=== PATIENT | male | born 1935 | race Caucasian/White ===

== ENCOUNTER 2016-08-16 09:36 | Observation (INO) ==
[2016-08-16 10:11] LABS: Basophils # 0.1 K/mcL (0.0-0.2); Basophils % 0.6 %; Eosinophils % 0.2 %; Hematocrit 41.3 % (37.5-50.1); Hemoglobin 13.6 g/dL (12.9-16.9); Immature Granulocytes % 0.3 % (0-4); Lymphocytes # 1.2 K/mcL (0.6-4.6); Lymphocytes % 13.3 %; Mean Corpuscular HGB Conc 32.9 g/dL (31.6-35.5); Mean Corpuscular Hemoglobin 30.1 pg (28.0-33.3); Mean Corpuscular Volume 91.4 fL (83.0-100.0); Mean Platelet Volume 9.9 fL (9.4-12.4); Monocytes # 0.9 K/mcL (0.0-1.3); Monocytes % 9.9 %; Neutrophils # 6.8 K/mcL (1.6-8.9); Platelet Count 410 K/mcL (140-400); Red Blood Count 4.52 M/mcL (4.19-5.50); Red Cell Distribution Width 14.1 % (11.5-14.5); Segmented Neutrophils % 75.7 %
--- NOTE | 2016-08-16 10:15 | Emergency Department Note ---
Disposition Clinical Impression: Uncontrolled hypertension, Bradycardia, Left bundle branch block, First degree atrioventricular block Disposition: Admitted As Inpatient Condition: Fair Referrals: Zarina Thacker MD [Partnered Physician] - Forms: ED Satisfaction Letter Time of Disposition: 11:55 Arrhythmia/Palpitations HPI - General Chief Complaint: ED Arrhythmia/Palpitations Stated Complaint: Low HR, dizziness Time Seen by Provider: 08/16/16 09:44 Source: patient Limitations: no limitations Nursing Notes Reviewed: Yes Vital Signs Reviewed: Yes - History of Present Illness HPI Narrative: 80-year-old male presents to emergency room for dizziness. States has been ongoing for months that seems to be getting worse and felt faint at times. He presents to the ER for concerns for elevated blood pressure and low heart rate. He does not see a doctor. Does not take any medications. He denies any chest pain or shortness of breath. No recent illness. Does not take any home medications for blood pressure. They took his vitals this morning at home and noted him to have a blood pressure of 200 systolic and a heart rate in the low 40s. His brought him into the ER for evaluation. Pt Subjective Complaint: irregular heart beat Onset (ago): week(s) Duration: intermittent Severity: mild Context: occurred during rest Associated symptoms: Reports: denies other symptoms - Related Data Allergies Allergy/AdvReac Type Severity Reaction Status Date / Time No Known Allergies Allergy Verified 08/16/16 10:16 All systems ED: reviewed and negative except as stated. Constitutional: Reports: as per HPI Eyes: Reports: as per HPI Cardiovascular: Reports: as per HPI Respiratory: Reports: as per HPI Gastrointestinal: Reports: as per HPI Musculoskeletal: Reports: as per HPI Integumentary: Reports: as per HPI Neurological: Reports: other (dizzy) Psychiatric: Reports: as per HPI Endocrine: Reports: as per HPI Hematological/Lymphatic: Reports: as per HPI Allergic/Immunologic: Reports: as per HPI Past Medical History - Past Medical History Medical history: Reports: no medical history Psychiatric history: Reports: no psych history - Social History Smoking Status: Never smoker Smokeless Tobacco Status: No Alcohol use: Reports: none Drug use: Reports: none Physical Exam - General Limitations: no limitations General appearance: alert - Head Head exam: atraumatic, normocephalic - Neck Neck exam: Present: normal inspection - Chest Chest inspection: Present: normal inspection, symmetric chest wall rise - Respiratory Respiratory exam: Present: normal lung sounds bilaterally. Absent: respiratory distress - Cardiovascular Cardiovascular exam: Present: bradycardia, irregular rhythm (PVCs) - Abdominal Exam Abdominal exam: Present: soft, Non-Tender - Extremities Exam Extremities exam: Present: pedal edema (1+ pitting edema) - Back Exam Back exam: Present: normal inspection - Neurological Exam Neurological exam: Present: alert, oriented X3 - Psychiatric Psychiatric exam: Present: normal affect, normal mood - Skin Skin exam: Present: warm, dry, intact Course Course Narrative: Patient was found to be hypertensive as well as bradycardic. His EKG shows a first-degree block as well as a left bundle-branch block. CT of the brain was nonacute. Slight elevation of the troponin likely secondary to coronary strain from the uncontrolled hypertension. We gave him hydralazine IV 10 mg. It brought his pressure down from the 220s down to the 180s. No other significant lab abnormalities. Patient will need to be admitted for further workup of this bradycardia as well as his hypertension. Vital Signs Temperature 97.3 F L 08/16/16 09:41 Pulse Rate 35 08/16/16 09:41 Respiratory Rate 18 08/16/16 09:41 Blood Pressure 220/118 08/16/16 09:41 O2 Sat by Pulse Oximetry 97 08/16/16 09:41 Temperature 97.3 F L 08/16/16 09:41 Pulse Rate 40 08/16/16 10:46 Respiratory Rate 18 08/16/16 10:46 Blood Pressure 181/64 08/16/16 10:46 O2 Sat by Pulse Oximetry 95 08/16/16 10:46 Oxygen Delivery Oxygen Delivery Room Air Arrhythmia/Palpitations - Medical Records Medical records reviewed: Yes I reviewed the patient's medical records. - Lab Data Lab results reviewed: Yes I reviewed the patient's lab results. Result diagrams: 08/16/16 10:03 08/16/16 10:03 Lab Results 08/16/16 08/16/16 08/16/16 Range/Units 10:03 10:03 10:03 WBC 9.0 (4.3-11.1) K/mcL RBC 4.52 (4.19-5.50) M/mcL Hgb 13.6 (12.9-16.9) g/dL Hct 41.3 (37.5-50.1) % MCV 91.4 (83.0-100.0) fL MCH 30.1 (28.0-33.3) pg MCHC 32.9 (31.6-35.5) g/dL RDW 14.1 (11.5-14.5) % Plt Count 410 H (140-400) K/mcL MPV 9.9 (9.4-12.4) fL Immature Gran % 0.3 (0-4) % Seg Neutrophils % 75.7 % Lymphocytes % 13.3 % Monocytes % 9.9 % Eosinophils % 0.2 % Basophils % 0.6 % Neutrophils # 6.8 (1.6-8.9) K/mcL Lymphocytes # 1.2 (0.6-4.6) K/mcL Monocytes # 0.9 (0.0-1.3) K/mcL Eosinophils # 0.0 (0.0-0.6) K/mcL Basophils # 0.1 (0.0-0.2) K/mcL Sodium 139 (136-145) mEq/L Potassium 4.4 (3.5-4.5) mEq/L Chloride 105 (98-109) mEq/L Carbon Dioxide 26 (19-29) mEq/L BUN 17 (8-26) mg/dL Creatinine 1.23 (0.72-1.25) mg/dL Est GFR ( Amer) > 60 (> 60) Est GFR (Non-Af Amer) 56 L (> 60) BUN/Creatinine Ratio 14 (6-26) Glucose 131 H (70-99) mg/dL Calculated Osmolality 291 (280-300) Calcium 9.5 (8.6-10.8) mg/dL Magnesium 1.9 (1.6-2.6) mg/dL Troponin I 0.06 H* (0-0.03) ng/mL TSH 0.909 (0.350-4.840) mcIU/mL - Radiology Data Radiology results reviewed: Yes I reviewed the patient's radiology results. - EKG Data EKG attestation: Yes I reviewed and interpreted this EKG. EKG results narrative: EKG shows a rate of 43. Sinus bradycardia with a first-degree block present. Left bundle branch block present. [place] interval 245. QRS 174. QT 424.
[2016-08-16 10:23] LABS: BUN/Creatinine Ratio 14 (6-26); Blood Urea Nitrogen 17 mg/dL (8-26); Calcium 9.5 mg/dL (8.6-10.8); Carbon Dioxide 26 mEq/L (19-29); Chloride 105 mEq/L (98-109); Glucose 131 mg/dL (70-99); Magnesium 1.9 mg/dL (1.6-2.6); Osmolality,Calculated 291 (280-300); Potassium 4.4 mEq/L (3.5-4.5); Sodium 139 mEq/L (136-145); eGFR For African Americans > 60 (> 60); eGFR For Non-African Americans 56 (> 60)
[2016-08-16 10:45] LABS: Thyroid Stimulating Hormone 0.909 mcIU/mL (0.350-4.840)
[2016-08-16] MEDS ORDERED: Naloxone 0.4 MG/ML INJ IVP PRN (12:21)
[2016-08-16] MEDS ORDERED: amLODIPine 5 MG TABLET PO SCH (12:30)
--- NOTE | 2016-08-16 12:44 | Internal Med History&Physical ---
Date of Encounter: 08/16/16 Time of Encounter: 12:35 Assessment and Plan (1) 2Nd degree AV block Current visit: Yes Status: Acute EKG shows 2nd degree AV block, with ventricular rate running in the 30s-40s. Patient reports he has been having lightheadedness over the last several weeks. Continuous playground monitor Pacer at bedside Consult to cardiology. NPO after midnight for possible pacemaker placement tomorrow. (2) Elevated troponin Current visit: Yes Status: Acute Troponin of 0.06. Likely demand ischemia due to patient's bradycardia and uncontrolled hypertension. Continuous playground monitor serial troponins for trend Consult to cardiology (3) Bradycardia Current visit: Yes Status: Acute Patient's HR 33-49 during my assessment. Patient complaining of occasional lightheadedness over the last few weeks, mostly with activity. EKG [id number] degree heart block with ventricular rate of 43. Continuous playground monitor pacer at the bedside cardiology consulted. (4) Uncontrolled hypertension Current visit: Yes Status: Acute Patient has not seen a doctor since the , however he reports that he has checked his blood pressure at [facility] 2-3 times a year and it always runs 180s-200s. Patient's blood pressure today continues to be uncontrolled, running 181/64-220/118. We do not want to bring down the blood pressure too far or too quickly. Will give 10mg amlodipine daily, hold for SBP > 160, and give 5mg Hydralazine IVP BID PRN for SBP > 190 or DBP > 110. Cardiology consulted. (5) DVT prophylaxis Current visit: Yes Status: Acute Ambulate with assistance anti-embolic stockings Lovenox 40mg SQ daily Internal Medicine - H&P: HPI Chief complaint: lightheadedness Admitted From: Emergency Dept Plans for Post Hospital Care: Home History of present illness: Mr. Navarro is a 80 year old male with no past medical history who presented to the emergency department today with complaints of feeling lightheaded. He reports he has had episodes of feeling "tipsy" for several weeks. He reports he feels "woozy" and like he might pass out. His checked his heart rate and blood pressure at home and noted his HR to be low (in the 30s) and blood pressure to be > 200, and they decided to come in to the emergency room. He denies any headache, chest pain, palpitations, numbness, weakness, tingling, confusion. He denies any fever, chills, sweats or body aches. Evaluation in the ED revealed bradycardia with HR in the 30s-40s, and hypertension with blood pressure 220/118. Troponin was elevated to 0.06. TSH was normal. CXR showed no acute cardiopulmonary process. CT Head showed no acute intracranial abnormality. EKG showed 2nd degree heart block with left bundle branch block. On exam, patient was alert and oriented with no focal neurological deficits. His pulses were bounding, and heart had bradycardic, regular rhythm. Lungs were clear bilaterally to auscultation. Past Med Surg Social Fam HX - Past Medical History Medical history: no medical history Psychiatric history: no psych history - Past Surgical History Surgical History: no surgical history - Social History Smoking Status: Never smoker Smokeless Tobacco Status: No Alcohol use: none Drug use: none - Family History Mother Living Status: Age at : 47 Cause of : cancer Hx Family Cancer: Yes Father Living Status: Age at : 65 Internal Medicine - H&P: Meds No Known Home Drugs 08/16/16 [History] Allergies No Known Allergies Allergy (Verified 08/16/16 10:16) All Systems PM: A 10-system review of systems was performed and is negative for pertinent findings except as documented above in the HPI. - Constitutional Constitutional: no chills, no fever(s), no night sweats - EENT Eyes: no change in vision, no discharge, no pain, no photophobia Ears: no ear discharge, no ear pain, no tinnitus Nose, mouth and throat: no dysphagia, no nasal discharge, no neck pain, no sore throat - Cardiovascular Cardiovascular ROS IM: lightheadedness, no chest pain, no diaphoresis, no dyspnea, no palpitations, no syncope - Respiratory Respiratory: no cough, no dyspnea, no wheezing, no excessive phlegm production - Gastrointestinal Gastrointestinal: no abdominal pain, no diarrhea, no hematemesis, no hematochezia, no melena, no nausea, no vomiting - Musculoskeletal Musculoskeletal ROS IM: no numbness, no tingling - Integumentary Integumentary IM: no rash, no unusual bruising - Neurological Neurological ROS: no confusion, no convulsions, no focal weakness, no numbness, no tingling, no tremor(s) - Hematologic/Lymphatic Hematologic/Lymphatic: no easy bruising - Constitutional Vitals: Temp Pulse Resp BP Pulse Ox 97.3 F L 40 18 181/64 95 08/16/16 09:41 08/16/16 10:46 08/16/16 10:46 08/16/16 10:46 08/16/16 10:46 General appearance: Present: A&O X 3, pleasant, no acute distress - Head Head exam: Present: atraumatic, normocephalic - Eye Eye exam: Present: PERRL, conjuntiva pink, sclera anicteric Pupils: Present: PERRL - Neck Neck exam general surgery: Present: supple, trachea midline. Absent: lymphadenopathy - Respiratory Respiratory exam: Present: CTAB. Absent: accessory muscle use, rales, rhonchi, wheezes - Cardiovascular Cardiovascular exam: Present: bradycardia, +S1, +S2. Absent: diastolic murmur, gallop, rubs, systolic murmur - Expanded Cardiovascular Exam Peripheral pulses: 2+: Dorsalis Pedis (L) PM, Dorsalis Pedis (R) PM, 3+/4+: Radial (L), Radial (R) - GI/Abdominal GI/Abdominal exam: Present: normal bowel sounds, soft, no peritoneal signs. Absent: distended, tenderness - Extremities Exam Extremities exam: Present: warm, radial pulses palpable and symetrical. Absent : calf tenderness, cyanotic, pedal edema - Neurological Exam Neurological exam: Present: CN II-XII intact, oriented X3, no focal deficits. Absent: pronater drift, facial droop, speech deficit - Skin Skin exam: Present: dry, intact Internal Med - H&P Results - Labs CBC & Chem 7: 08/16/16 10:03 08/16/16 10:03 Labs: All Lab Results (24 Hours) 08/16/16 08/16/16 08/16/16 Range/Units 10:03 10:03 10:03 WBC 9.0 (4.3-11.1) K/mcL RBC 4.52 (4.19-5.50) M/mcL Hgb 13.6 (12.9-16.9) g/dL Hct 41.3 (37.5-50.1) % MCV 91.4 (83.0-100.0) fL MCH 30.1 (28.0-33.3) pg MCHC 32.9 (31.6-35.5) g/dL RDW 14.1 (11.5-14.5) % Plt Count 410 H (140-400) K/mcL MPV 9.9 (9.4-12.4) fL Immature Gran % 0.3 (0-4) % Seg Neutrophils % 75.7 % Lymphocytes % 13.3 % Monocytes % 9.9 % Eosinophils % 0.2 % Basophils % 0.6 % Neutrophils # 6.8 (1.6-8.9) K/mcL Lymphocytes # 1.2 (0.6-4.6) K/mcL Monocytes # 0.9 (0.0-1.3) K/mcL Eosinophils # 0.0 (0.0-0.6) K/mcL Basophils # 0.1 (0.0-0.2) K/mcL Sodium 139 (136-145) mEq/L Potassium 4.4 (3.5-4.5) mEq/L Chloride 105 (98-109) mEq/L Carbon Dioxide 26 (19-29) mEq/L BUN 17 (8-26) mg/dL Creatinine 1.23 (0.72-1.25) mg/dL Est GFR ( Amer) > 60 (> 60) Est GFR (Non-Af Amer) 56 L (> 60) BUN/Creatinine Ratio 14 (6-26) Glucose 131 H (70-99) mg/dL Calculated Osmolality 291 (280-300) Calcium 9.5 (8.6-10.8) mg/dL Magnesium 1.9 (1.6-2.6) mg/dL Troponin I 0.06 H* (0-0.03) ng/mL TSH 0.909 (0.350-4.840) mcIU/mL - Diagnostic Studies Chest x-ray Additional comments: Chest X-Ray 08/16/16 09:49 IMPRESSION: No acute pulmonary process. D/ / 08/16/2016 10:16:10 Meche Thacker MD / [facility] Interpreting Provider: Meche Thacker MD CT scan - head Additional comments: Head CT 08/16/16 11:11 IMPRESSION: No acute intracranial abnormality. Mild scattered white matter low attenuation likely related to chronic microvascular ischemic change. D/ / Willy Gray MD / Willy Gray MD Interpreting Provider: Willy Gray MD
--- NOTE | 2016-08-16 13:55 | Event Note ---
Date of Encounter: 08/16/16 Time of Encounter: 13:50 Patient seen and examined withpetitioner. Patient presents with 2 weeks of symptoms of easy fatigue ability, decrease exercise tolerance, in addition to a sensation of "tipsiness" especially when he leans forwards. He was found to be in second-degree heart block one block. Heart rate was consistently in the 30s to 40s during my interview in the emergency room. Patient denies any syncope or pre-syncope. No chest pain. He was found to have severe hypertension which is chronic. Has been checking his pressure for many years and systolic guardado in the range of 180 to 200s but he has never taken any blood pressure medications. He has not seen a doctor for about 40 years. Suspect that his symptoms is due to symptomatic bradycardia. Cardiology service have been notified and he will possibly have a pacemaker tomorrow. He will be kept in NPO after midnight. With regards to his hypertension will plan to decrease his blood pressure only 15% to avoid precipitating ischemic infarcts. He will be started on Norvasc 10 mg daily. He does not have any focal neurological deficits. CT scan of the brain shows no intracranial bleed. He has elevated troponin (206 likely due to demand ischemia transurethral troponin. Has left bundle branch block but no prior EKG to compare. Continuous telemetry monitoring
[2016-08-16] MEDS: Aspirin 81 MG TAB.CHEW PO SCH (14:11)
--- NOTE | 2016-08-16 14:12 | Cardiology Consult Note ---
Date of Encounter: 08/16/16 Time of Encounter: 14:07 Assessment and Plan (1) 2Nd degree AV block Current Visit: Yes Status: Acute EKG reviewed which shows 2nd degree (type I) AV block. He reports no symptoms at rest. HR of 43. May benefit from pacer. Will make decision after echo result. (2) Elevated troponin Current Visit: Yes Status: Acute Troponin elevated at 0.06. EKG shows 2nd degree (type 1) AV block with rate of 43 No active or history of chest pain or angina equivalent Recommend trending troponin Echo is pending Further recommendations will follow after echo results (3) Left bundle branch block Current Visit: Yes Status: Acute No old EKG's to compare to Unclear age of LBBB (4) Uncontrolled hypertension Current Visit: Yes Status: Acute Agree with treating uncontrolled HTN with 15% reduction over next 24 hours. Elevated troponin may be due to uncontrolled HTN vs primary cardiac ischemic disease Echo is pending. Discussion w patient/family: The assessment and plan as outlined above was discussed with the patient and/or family members who expressed understanding and agreement. All questions were answered. Thank you for involving us in the care of your patient. Please call with any questions. History of Present Illness Consult date: 08/16/16 Consult reason: 2nd degree heart block, with elevated troponin Chief complaint: Pre-syncope History of present illness: Mr. Navarro is a 80 year old male who reports "I haven't been to a doctor since the day I was born". He has no known PMH. Takes no medications. NKDA. He reports he has had approximately 1 week of presyncope after bending over and standing back up quickly. 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 Denies any CP/COY. Denies any edema or cough. He told his about his symptoms who took him with her to her PCP appointment to get his BP checked. He was told to come to the ER due to HTN and bradycardia. He says he is currently asymptomatic while at rest. Past Med Surg Social Fam HX - Past Medical History Medical history: no medical history Psychiatric history: no psych history - Past Surgical History Surgical History: no surgical history - Social History Smoking Status: Never smoker Smokeless Tobacco Status: No Alcohol use: none Drug use: none - Family History Mother Living Status: Age at : 47 Cause of : cancer Hx Family Cancer: Yes Father Living Status: Age at : 65 Medications and Allergies No Known Home Drugs 08/16/16 [History] Allergies No Known Allergies Allergy (Verified 08/16/16 10:16) All Systems Review: A 10-system review of systems was performed and is negative for pertinent findings except as documented above in the HPI. - Constitutional Constitutional: no fever(s), no headache(s), no weight loss - EENT Eyes: no blurred vision Nose, mouth and throat: no epistaxis, no sore throat - Cardiovascular Cardiovascular: no chest pain at rest, no chest pain with exertion, no claudication, no dyspnea on exertion, no leg edema, no lightheadedness, no palpitations, no syncope - Respiratory Respiratory: no cough, no dyspnea - Gastrointestinal Gastrointestinal: no abdominal pain - Genitourinary Genitourinary: no dysuria - Integumentary Integumentary: no rash - Neurological Neurological: other (presyncope on standing), no syncope - Psychiatric Psychiatric: no anxiety, no depression - Hematological/Lymphatic Hematologic/Lymphatic: no easy bleeding Physical Examination Vital Signs, Last 4 Hours Temp Pulse Resp BP Pulse Ox 08/16/16 13:56 42 08/16/16 13:31 98.0 F 47 16 197/65 97 08/16/16 13:16 18 194/65 General: Conversant, No Apparent Distress HEENT: Atraumatic, Mucus Membranes Moist Neck: No JVD Cardiac: Other (bradycardia. No murmur. S1 and S2 present) Lungs: Normal Breath Sounds, No Wheeze, Rales, Rhonchi Neuro: Alert and responsive Abdomen: Soft Skin: No rashes noted on visualized skin Musculoskeletal: No Chest Wall Tenderness Extremities: No Clubbing, No Cyanosis, No Edema, Normal Pulses Results 08/16/16 10:03 08/16/16 10:03 Consult Discharge Plan - Plan Referrals: NO,PCP [Primary Care Provider] -
--- NOTE | 2016-08-16 14:19 | Event Note ---
Date of Encounter: 08/16/16 Time of Encounter: 13:46
[2016-08-17] MEDS ORDERED: *HR* Enoxaparin 40 MG/0.4 ML SYRINGE SQ SCH (06:00)
[2016-08-17 06:32] LABS: Basophils % 0.5 %; Eosinophils % 0.1 %; Hematocrit 38.8 % (37.5-50.1); Immature Granulocytes % 0.3 % (0-4); Lymphocytes # 1.2 K/mcL (0.6-4.6); Lymphocytes % 13.5 %; Mean Corpuscular HGB Conc 33.5 g/dL (31.6-35.5); Mean Corpuscular Hemoglobin 30.2 pg (28.0-33.3); Mean Corpuscular Volume 90.2 fL (83.0-100.0); Mean Platelet Volume 9.9 fL (9.4-12.4); Monocytes # 0.8 K/mcL (0.0-1.3); Monocytes % 9.2 %; Neutrophils # 6.7 K/mcL (1.6-8.9); Platelet Count 366 K/mcL (140-400); Red Cell Distribution Width 14.4 % (11.5-14.5); Segmented Neutrophils % 76.4 %
[2016-08-17 06:48] LABS: BUN/Creatinine Ratio 14 (6-26); Blood Urea Nitrogen 16 mg/dL (8-26); Carbon Dioxide 23 mEq/L (19-29); Chloride 110 mEq/L (98-109); Chol/HDL Ratio 3.7 (0-4.9); Cholesterol 146 mg/dL (< 200); Glucose 113 mg/dL (70-99); HDL Cholesterol 39 mg/dL (40-59); LDL Cholesterol,Calculated 92 mg/dL (0-99); Osmolality,Calculated 292 (280-300); Potassium 4.3 mEq/L (3.5-4.5); Sodium 140 mEq/L (136-145); Triglycerides 77 mg/dL (< 150); eGFR For African Americans > 60 (> 60); eGFR For Non-African Americans > 60 (> 60)
[2016-08-17] MEDS: Aspirin 81 MG TAB.CHEW PO SCH (07:39)
[2016-08-17] MEDS: amLODIPine 5 MG TABLET PO SCH (07:40)
--- NOTE | 2016-08-17 09:08 | ECHO - Doppler Report ---
Echocardiogram Name: Sean Navarro Date of Study: 08/16/2016 Date: 1935 Ht: 74.0 in Medical Record#: [id number] Age: 80 Wt: 175.0 lb Gender: Male BSA: 2.05 Order #: [id number] Location: [facility] Room #: 2N12 Reading Physician: Angel Haile MD, [facility] Product Safety Test Engineer: Adele Avilez Ordering Physician: Tarah Campa CNP Primary Physician: Zarina Thacker MD Indications: Heart block Impressions: Sinus rhythm with 2:1 AV block. Heart rate was in the upper 30's during this study. Normal LV systolic function, LVEF 55-60%. Atypical septal motion consistent with bundle branch block. Mild concentric left ventricular hypertrophy. Indeterminate diastolic function. Normal right ventricular size and function. Moderately dilated left atrium. Mildly dilated right atrium. Mild diastolic mitral regurgitation. Mild diastolic tricuspid regurgitation. Mild pulmonary hypertension. Estimated RVSP = 45 mmHg. Left Ventricular Wall Motion: Rest Echo Findings All wall segments showed normal motion. Findings: Study Quality * Suboptimal echo windows. ECG Findings * Sinus rhythm with 2:1 AV block. Heart rate was in the upper 30's during this study. Left Ventricle * Normal LV systolic function, LVEF 55-60%. * Atypical septal motion consistent with bundle branch block. * Mild concentric left ventricular hypertrophy. * Indeterminate diastolic function. Right Ventricle * Normal right ventricular size and function. Left Atrium * Moderately dilated left atrium. Right Atrium * Mildly dilated right atrium. Aorta * Normally sized aortic root. Pericardium * There is a trivial pericardial effusion present. IVC * The IVC is not dilated. Aortic Valve * Aortic valve not well visualized. * No aortic stenosis. * Mild aortic regurgitation. Mitral Valve * Mild mitral annular calcification * No mitral stenosis. * Mild diastolic mitral regurgitation. Tricuspid Valve * Tricuspid valve not well visualized. * No tricuspid stenosis. * Mild diastolic tricuspid regurgitation. * Mild pulmonary hypertension. Estimated RVSP = 45 mmHg. Pulmonic Valve * Pulmonic valve not well visualized. * No pulmonic stenosis. * Trace pulmonic regurgitation. History Family History of CAD Measurements: BP: 197/ 65 2D Normal Values RVIDd: 3.50 cm IVSd: 1.20 cm 0.6 - 1.0 cm LVIDd: 5.60 cm 3.7 - 5.6 cm LVPWd: 1.20 cm 0.6 - 1.1 cm LVIDs: 3.40 cm 1.5 - 3.6 cm AO: 3.70 cm < 4.0 cm LA volume: 84 Tricuspid Valve TV Regurg Peak Grad: 40.00mmHg TV Regurg Peak Davide: 3.16m/sec Updated by Angel Haile MD, [facility] on 08/17/2016 9:00:31 AM electronically signed on 08/17/2016 9:02:13 AM with status of Final Wall Motion Ortiz: 1=Normal, 2=Hypokinesis, 3=Akinesis, 4=Dyskinesis, 5=Aneurysmal, 6=Hyperkinetic, X=Not Visualized (Blank)=Missing
--- NOTE | 2016-08-17 09:55 | Cardiology Progress Note ---
Date of Encounter: 08/17/16 Time of Encounter: 09:53 Assessment and Plan (1) 2Nd degree AV block Current Visit: Yes Status: Acute EKG reviewed which shows 2nd degree (type I) AV block. He reports no symptoms at rest. HR of 30's to 40's. Echo did not show discrete wall motion abnormality. Plan is for a Pacer today. (2) Elevated troponin Current Visit: Yes Status: Acute Troponin elevated at 0.06. EKG shows 2nd degree (type 1) AV block with rate of 43 No active or history of chest pain or angina equivalent Mild increase in troponin. Not likely from acute occlusive disease. No plan for immediate LHC. (3) Left bundle branch block Current Visit: Yes Status: Acute No old EKG's to compare to Unclear age of LBBB (4) Uncontrolled hypertension Current Visit: Yes Status: Acute Agree with treating uncontrolled HTN with 15% reduction over next 24 hours. Elevated troponin may be due to uncontrolled HTN Discussion w patient/family: The assessment and plan as outlined above was discussed with the patient and/or family members who expressed understanding and agreement. All questions were answered. Thank you for involving us in the care of your patient. Please call with any questions. Subjective Principal diagnosis: Mobitz 1 block Interval history: No significant events overnight. Received an echo which did not show any concern for significant wall motion abnormality. EF 55-60% He has been NPO since midnight. No CP/COY. No symptoms of pre-syncope while at rest. Does feel fatigued when gets up and walks to bathroom. Family has multiple questions which were answered. Objective Vital Signs, Last 4 Hours Temp Pulse Resp BP Pulse Ox 08/17/16 07:49 39 08/17/16 07:09 98.4 F 40 18 185/69 94 General: Conversant HEENT: Atraumatic Neck: No JVD Cardiac: Other (bradycardia) Lungs: Normal Breath Sounds Neuro: Alert and responsive Abdomen: Soft Skin: No rashes noted on visualized skin Extremities: No Cyanosis, No Edema, Normal Pulses Results 08/17/16 06:26 08/17/16 06:26 Lab Results 08/16/16 08/16/16 08/17/16 16:06 22:04 06:26 WBC 8.8 Hgb 13.0 Hct 38.8 Plt Count 366 Sodium Potassium Chloride Carbon Dioxide BUN Creatinine Glucose Calcium Troponin I 0.08 H* 0.10 H* 08/17/16 06:26 WBC Hgb Hct Plt Count Sodium 140 Potassium 4.3 Chloride 110 H Carbon Dioxide 23 BUN 16 Creatinine 1.12 Glucose 113 H Calcium 9.0 Troponin I - Imaging and Cardiology Echo: report reviewed - VTE Documentation of Mechanical Device: Graduated compression elastic hosiery Consult Discharge Plan - Plan Referrals: NO,PCP [Primary Care Provider] -
--- NOTE | 2016-08-17 11:37 | Electrocardiograph Report ---
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
--- NOTE | 2016-08-17 11:45 | Electrocardiograph Report ---
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
[2016-08-17] MEDS ORDERED: *HR* Midazolam HCl 2 MG/2 ML VIAL ONE ×2 (16:38→17:11)
[2016-08-17] MEDS ORDERED: *HR* FentaNYL (PF) 100 MCG/2 ML VIAL ONE (16:39)
[2016-08-17] MEDS ORDERED: D5% in Water (Mini-Bag+) 100 ML IVPB ONE (16:39)
[2016-08-17] MEDS ORDERED: Water for inj. (sterile) 10 ML IV ONE (16:39)
[2016-08-17] MEDS ORDERED: 0.9 % Sodium Chloride 500 ML ONE (16:39)
--- NOTE | 2016-08-17 16:42 | Pre-Sedation Evaluation ---
Pre-sedation evaluation - Pre-sedation checklist Date of procedure: 08/17/16 Procedure: PPM Recent Vitals: Last Vital Signs Temp 98.6 F 08/17/16 15:00 Pulse 44 08/17/16 15:00 Resp 16 08/17/16 15:00 BP 185/65 08/17/16 15:00 Pulse Ox 94 08/17/16 15:00 H&P (including ROS) documented in medical record: Yes Previous reaction to sedatives/anesthetics: No Dietary Status: NPO after Midnight Airway Assessment: Patient can open mouth completely, TMJ function normal, Micrognathia (under-bite, receding chin) absent Dentition: No loose teeth or bridges Possible difficult airway: No ASA Classification *see protocol: CLASS II-Mild systemic disease Plan of Care: Pt appropriate candidate for procedure/moderate/conscious sedation , Risks/benefits of procedure/sedation discussed w/ patient/family
[2016-08-17] MEDS ORDERED: 0.9 % Sodium Chloride 1,000 ML ONE (16:55)
--- NOTE | 2016-08-17 17:18 | Internal Med Progress Note ---
Date of Encounter: 08/17/16 Time of Encounter: 17:12 - Assessment and plan (1) 2Nd degree AV block Current Visit: Yes Status: Acute Assessment and plan: for pacemaker today, follow cards. (2) Uncontrolled hypertension Current Visit: Yes Status: Acute Assessment and plan: continue current management, continue monitoring. - Subjective Interval history: 1st encounter with the patient. afebrile, son in law at bedside. no chest pain. - Constitutional Vitals: Temp Pulse Resp BP Pulse Ox 98.6 F 44 16 185/65 94 08/17/16 15:00 08/17/16 15:00 08/17/16 15:00 08/17/16 15:00 08/17/16 15:00 General appearance: Present: A&O X 3, pleasant, no acute distress - Head Head exam: Present: atraumatic, normocephalic - Eye Eye exam: Present: PERRL, conjuntiva pink, sclera anicteric Pupils: Present: PERRL - Neck Neck exam general surgery: Present: supple, trachea midline. Absent: lymphadenopathy - Respiratory Respiratory exam: Present: CTAB. Absent: accessory muscle use, rales, rhonchi, wheezes - Cardiovascular Cardiovascular exam: Present: RRR, +S1, +S2. Absent: diastolic murmur, gallop, rubs, systolic murmur - GI/Abdominal GI/Abdominal exam: Present: normal bowel sounds, soft, no peritoneal signs. Absent: distended, tenderness - Extremities Exam Extremities exam: Present: warm, radial pulses palpable and symetrical. Absent : calf tenderness, cyanotic, pedal edema - Neurological Exam Neurological exam: Present: CN II-XII intact, oriented X3, no focal deficits. Absent: pronater drift, facial droop, speech deficit - Skin Skin exam: Present: dry, intact Internal Medicine: Result - Labs CBC & Chem 7: 08/17/16 06:26 08/17/16 06:26 Labs: Short CBC 08/17/16 Range/Units 06:26 WBC 8.8 (4.3-11.1) K/mcL Hgb 13.0 (12.9-16.9) g/dL Hct 38.8 (37.5-50.1) % Plt Count 366 (140-400) K/mcL Neutrophils # 6.7 (1.6-8.9) K/mcL BMP 08/17/16 06:26 Sodium 140 Potassium 4.3 Chloride 110 H Carbon Dioxide 23 BUN 16 Creatinine 1.12 Glucose 113 H Calcium 9.0 Cardiac Enzymes 08/16/16 Range/Units 22:04 Troponin I 0.10 H* (0-0.03) ng/mL - VTE Documentation of Mechanical Device: Graduated compression elastic hosiery Consult Discharge Plan - Plan Referrals: Zarina Thacker MD [Partnered Physician] - 08/25/16 2:50 pm () NO,PCP [Primary Care Provider] -
--- NOTE | 2016-08-17 18:25 | Invasive Diagnostic Lab ---
Dual Chamber Pacemaker Insertion Name: Sean Navarro Date of Study: 08/17/2016 Date: 1935 Ht: 188.0 cm / 74.0 in Medical Record#: [id number] Age: 80 Wt: 85.5 kg / 188.5 lb Gender: Male BSA: 2.12 Location: Fluoro Dose: 13 mGy BMI: 24.19 Performing MD: Tez Philip MD, [facility] Procedures Performed: Procedure PM INSERTION DUAL LEADS Indications: Description 2nd Degree AV Block type I Impressions: * Successful implant of dual chamber pacemaker generator. Degree of difficulty was moderate. Appropriate functionality was observed at the end of the case. Procedure completed without incident. Recommendations: The patient will follow-up in 4-6 weeks for a post-pacemaker interrogation and evaluation with their Radiologic Electronic Specialist. Procedure Description: After informed consent was obtained, the patient was brought to the laboratory in the fasting, post absorptive state. The left subclavicular region was prepped and draped in sterile fashion. Local anesthesia was performed using 1% Lidocaine. A 4cm incision was created two fingerbreadths below and parallel to the clavicle and carried down to the prepectoral fascia. At that level, a pocket was created to accomodate and size the hardware. This portion of the procedure used sharp dissection, blunt dissection and electrocautery. Venous access was obtained using a dual axillary vein stick with the modified Seldinger technique using two 7 Fr. Safe sheaths. The right ventricular lead was manipulated under direct fluoroscopy to find a physically stable and electrically optimal location in the RV [place]. Next, the right atrial lead was placed and again manipulated under direct fluoroscopy to find a physically stable electrically optimal location in the RA appendage. Hemostasis was obtained. The pocket was copiously irrigated with antibiotic solution. The device was connected to the leads in standard fashion and set screws deployed. The device was placed in the pocket. No anchoring sutures were placed. The wound was closed in layers starting with 2-0 Vicryl for the deep layer and 4-0 Vicryl for the skin. Steri-Strips were placed and 4x4s secured with tape. The patient tolerated the procedure well. Complications: None Disposition: The patient was returned to the recovery room. Patient will be scheduled to have a follow-up wound check in one week here at [facility]. PPM Device Information: Agronomy Professor Model Name Model No. Serial No. Medtronic Valente BENAVIDEZ MRI [id number] PPM Lead(s) Information: Agronomy Professor Model Name Model No. Serial No. Placement Medtronic CapSure Fix Novus 5076 [id number] RV [place] Medtronic CapSure Fix Novus 5076 [id number] RA septum Device Measurement Data: Sensing (mV) Threshold (V) / (msec) Impedance (Ohms) Atrial Lead 4.3 0.3 / 0.8 864 RV Lead 7 0.5 / 0.5 834 LV Lead Device Settings: MODE: DDDR Lower Rate: 60 bpm MANUEL Delay: Upper Rate: 120 bpm PAV Delay: Procedure Medications: Time Medication Dose Unit Route 05:00 PM Versed 2 Mg Intravenous 05:01 PM Fentanyl 50 Mcg Intravenous 05:12 PM Versed 1 Mg Intravenous 05:12 PM Fentanyl 25 Mcg Intravenous 05:13 PM Lidocaine 2% 9 mL Subcutaneous 05:15 PM Lidocaine 2% 4 mL Subcutaneous 05:15 PM Fentanyl 25 Mcg Intravenous 05:17 PM Lidocaine 2% 5 mL Subcutaneous Contrast: Isovue 0 ml. Complications: No complications occurred during the procedure. Complication None Updated by Tez Philip MD, FACC on 08/17/2016 6:18:32 PM electronically signed on 08/17/2016 6:18:57 PM with status of Final
[2016-08-17] MEDS: ceFAZolin 2,000 MG in D5% in Water 100 ML IVPB SCH (23:42)
[2016-08-18 05:30] LABS: BUN/Creatinine Ratio 17 (6-26); Blood Urea Nitrogen 18 mg/dL (8-26); Carbon Dioxide 22 mEq/L (19-29); Chloride 109 mEq/L (98-109); Potassium 4.2 mEq/L (3.5-4.5); Sodium 139 mEq/L (136-145); eGFR For African Americans > 60 (> 60); eGFR For Non-African Americans > 60 (> 60)
[2016-08-18] MEDS: ceFAZolin 2,000 MG in D5% in Water 100 ML IVPB SCH (09:22)
[2016-08-18] MEDS: Aspirin 81 MG TAB.CHEW PO SCH (09:22)
[2016-08-18] MEDS: amLODIPine 5 MG TABLET PO SCH (09:22)
--- NOTE | 2016-08-18 09:29 | Cardiology Progress Note ---
Date of Encounter: 08/18/16 Time of Encounter: 09:27 Assessment and Plan (1) 2Nd degree AV block Current Visit: Yes Status: Acute Received a pacer yesterday evening Symptoms are resolved Device check today and chest x-ray to verify function/placement prior to discharge Device check performed, functioning as expected. Chest x-ray unremarkable. Ready for d/c home and outpatient follow up Recommend starting on 81mg of asa daily at home (2) Elevated troponin Current Visit: Yes Status: Acute Troponin elevated at 0.06. EKG shows 2nd degree (type 1) AV block with rate of 43 No active or history of chest pain or angina equivalent Mild increase in troponin. Not likely from acute occlusive disease. No plan for immediate LHC. (3) Left bundle branch block Current Visit: Yes Status: Acute No old EKG's to compare to Unclear age of LBBB (4) Uncontrolled hypertension Current Visit: Yes Status: Acute Agree with treating uncontrolled HTN Recommend d/c home with oral medications Discussion w patient/family: The assessment and plan as outlined above was discussed with the patient and/or family members who expressed understanding and agreement. All questions were answered. Thank you for involving us in the care of your patient. Please call with any questions. Subjective Principal diagnosis: Mobitz 1 block Interval history: Received pacemaker yesterday by Dr Philip. The patient reports his symptoms with ambulation and standing are resolved. He feels well and would like to be DC home. He does report some mild localized pain at the insertion site of the pacemaker. Objective Vital Signs, Last 4 Hours Temp Pulse Resp BP Pulse Ox 08/18/16 07:53 98.6 F 70 18 182/84 94 General: Conversant HEENT: Atraumatic Neck: No JVD Cardiac: Reg Rate and Rhythm, Normal S1 and S2 Lungs: Normal Breath Sounds, No Wheeze, Rales, Rhonchi Neuro: Alert and responsive Abdomen: Soft Skin: Other (clean incision to left upper chest, so surrounding erythema or discharge) Extremities: No Cyanosis, No Edema Results 08/17/16 06:26 08/18/16 04:45 Lab Results 08/18/16 04:45 Sodium 139 Potassium 4.2 Chloride 109 Carbon Dioxide 22 BUN 18 Creatinine 1.03 - VTE Documentation of Mechanical Device: Graduated compression elastic hosiery Consult Discharge Plan - Plan Referrals: Zarina Thacker MD [Partnered Physician] - 04/28/17 2:50 pm () NO,PCP [Primary Care Provider] - Prescriptions: Amlodipine [Norvasc] 10 mg PO DAILY #30 tablet Aspirin Enteric Coated [Aspirin EC] 81 mg PO DAILY #30 tablet. Losartan [Cozaar] 50 mg PO DAILY 30 Days
[2016-08-18 11:26] VITALS: BP 174/84
--- NOTE | 2016-08-18 12:49 | Discharge Summary ---
Date of Encounter: 08/18/16 Time of Encounter: 12:47 - Discharge Diagnosis (1) 2Nd degree AV block Priority: Primary Status: Acute (2) Uncontrolled hypertension Priority: Secondary Status: Acute - Discharge Medications Prescriptions: Amlodipine [Norvasc] 10 mg PO DAILY #30 tablet Aspirin Enteric Coated [Aspirin EC] 81 mg PO DAILY #30 tablet. Losartan [Cozaar] 50 mg PO DAILY 30 Days Home Medications: Amlodipine [Norvasc] 10 mg PO DAILY #30 tablet 08/18/16 [Rx] Aspirin Enteric Coated [Aspirin EC] 81 mg PO DAILY #30 tablet. 08/18/16 [Rx] Losartan [Cozaar] 50 mg PO DAILY 30 Days 08/18/16 [Rx] Allergies/Adverse Reactions: Allergies No Known Allergies Allergy (Verified 08/16/16 10:16) Procedures/tests Complete & Pending: Procedures Performed prior 72 hours Category Date Time Status CL Insert Permanent Pacemaker [CL] Routine Glove Brusher 08/17/16 16:37 Completed ECG 12 lead ECG [ECG] Stat Y 08/16/16 18:21 Completed EKG [ECG 12 lead ECG] [ECG] Routine Y 08/17/16 01:59 Ordered EV echocardiogram Stat Y 08/16/16 14:45 Completed Date of admission: 08/16/16 11:57 Primary care physician: PCP NO Consults: 08/16/16 12:28 Consult to Cardiology [CONS] Routine Comment: Consulting Provider: Cardiology [facility] Reason for Consult: 2nd degree heart block with bradycardia, HR 30s-40s Call Completed: Yes Discharging clinician: Riki Greco Anticipated date of discharge: 08/18/16 - Patient Status Disposition: Home, Self-Care Condition: Fair Functional capacity at discharge: independent ambulation Overall status at discharge: patient is back to baseline - Discharge Instructions Follow Up With: Zarina Thacker MD [Partnered Physician] - 08/25/16 2:50 pm () NO,PCP [Primary Care Provider] - Additional Instructions: Follow up with cardiology as outpatient. - Diet and Activity Activity: increase activity as tolerated Diet: advance to your usual diet Interval History: Mr. Navarro is a 80 year old male with no past medical history who presented to the emergency department today with complaints of feeling lightheaded. He reports he has had episodes of feeling "tipsy" for several weeks. He reports he feels "woozy" and like he might pass out. His checked his heart rate and blood pressure at home and noted his HR to be low (in the 30s) and blood pressure to be > 200, and they decided to come in to the emergency room. He denies any headache, chest pain, palpitations, numbness, weakness, tingling, confusion. He denies any fever, chills, sweats or body aches. Evaluation in the ED revealed bradycardia with HR in the 30s-40s, and hypertension with blood pressure 220/118. Troponin was elevated to 0.06. TSH was normal. CXR showed no acute cardiopulmonary process. CT Head showed no acute intracranial abnormality. EKG showed 2nd degree heart block with left bundle branch block. On exam, patient was alert and oriented with no focal neurological deficits. His pulses were bounding, and heart had bradycardic, regular rhythm. Lungs were clear bilaterally to auscultation. Hospital course: Mr. Navarro is a 80 year old male underwent pacemaker placement, tolerated procedure well. Uncontrolled HTN, started on amlodipine, will continue with amlodipine 10 mg daily and add losartan 50 daily. Patient will follow up with pcp and cardiology as outpatient. D/W patient and his family. - Time Spent with Patient Total time spent providing and/or coordinating discharge services: - Constitutional Vitals: Temp Pulse Resp BP Pulse Ox 98.6 F 72 16 174/84 93 08/18/16 11:23 08/18/16 11:23 08/18/16 11:23 08/18/16 11:23 08/18/16 11:23 General appearance: Present: A&O X 3, pleasant, no acute distress - Head Head exam: Present: atraumatic, normocephalic - Eye Eye exam: Present: PERRL, conjuntiva pink, sclera anicteric Pupils: Present: PERRL - Neck Neck exam general surgery: Present: supple, trachea midline. Absent: lymphadenopathy - Respiratory Respiratory exam: Present: CTAB. Absent: accessory muscle use, rales, rhonchi, wheezes - Cardiovascular Cardiovascular exam: Present: RRR, +S1, +S2. Absent: diastolic murmur, gallop, rubs, systolic murmur - GI/Abdominal GI/Abdominal exam: Present: normal bowel sounds, soft, no peritoneal signs. Absent: distended, tenderness - Extremities Exam Extremities exam: Present: warm, radial pulses palpable and symetrical. Absent : calf tenderness, cyanotic, pedal edema - Neurological Exam Neurological exam: Present: CN II-XII intact, oriented X3, no focal deficits. Absent: pronater drift, facial droop, speech deficit - Skin Skin exam: Present: dry, intact - VTE Documentation of Mechanical Device: Graduated compression elastic hosiery
== END 2016-08-18 14:26 | disposition home or self-care (01) ==
LOC: EMEROO 09:36 → 3BNU 09:36 → 2NENU 12:04 → 2NNU 12:17 → SUATTDRO 12:21 → 2NNU 13:29
PROVIDERS: ADMIT Hospitalist; ATTEND Internal Medicine

== ENCOUNTER 2016-08-21 14:07 | Inpatient (IN) ==
[~2016-08-21 14:07] MED LIST: Aminoglycoside Consult 1 EACH MC ONE
--- NOTE | 2016-08-21 14:54 | Emergency Department Note ---
Disposition Clinical Impression: Pulmonary nodules, Neoplasm of skin of chest, Abnormal EKG, Status post placement of cardiac pacemaker, New onset atrial flutter Chest pain Qualifiers: Chest pain type: unspecified Qualified Code(s): R07.9 - Chest pain, unspecified Dyspnea Qualifiers: Dyspnea type: unspecified Qualified Code(s): R06.00 - Dyspnea, unspecified Pneumonia Qualifiers: Pneumonia type: due to unspecified organism Laterality: bilateral Lung location : lower lobe of lung Qualified Code(s): J18.9 - Pneumonia, unspecified organism Disposition: Admitted As Inpatient Condition: Fair Time of Disposition: 17:08 Chest Pain HPI - General Chief Complaint: ED Chest Pain Stated Complaint: CP Time Seen by Provider: 08/21/16 14:51 Source: patient Mode of arrival: ambulatory Limitations: no limitations Vital Signs Reviewed: Yes Nursing Notes Reviewed: Yes - History of Present Illness HPI Narrative: Patient is an 80-year-old male with past medical history of second-degree AV block, recent pacemaker placement 5 days ago. He presents today due to sudden onset chest pain and shortness of breath beginning this morning around 1:30 AM. He states that it woke him up out of sleep. He has been having subjective shortness of breath, pain in the center of his chest and he takes deep breaths. He says that is in constant since this morning, worsened with exertion. Denies any previous ND or stenting. He had a recent pacemaker placement 5 days ago and daughter states that he did not take his last Lovenox injection because he refused to have a shot placed in his abdomen. He denies any radiation of the pain, denies any nausea, vomiting, fevers, abdominal pain, diarrhea. Severity scale (1-10): 5 - Related Data Previous Rx's Medication Instructions Recorded Amlodipine [Norvasc] 10 mg PO DAILY #30 tablet 08/18/16 Aspirin Enteric Coated [Aspirin EC] 81 mg PO DAILY #30 tablet. 08/18/16 Losartan [Cozaar] 50 mg PO DAILY 30 Days 08/18/16 Allergies Allergy/AdvReac Type Severity Reaction Status Date / Time No Known Allergies Allergy Verified 08/16/16 10:16 Constitutional: Denies: fever Cardiovascular: Reports: chest pain, dyspnea on exertion. Denies: palpitations Respiratory: Reports: dyspnea. Denies: cough, wheezes, hemoptysis Gastrointestinal: Denies: abdominal pain, nausea, vomiting, diarrhea Genitourinary: Denies: urgency, dysuria Musculoskeletal: Denies: back pain Integumentary: Denies: rash Neurological: Denies: weakness, numbness, paresthesias Chest Pain PMH - Past Medical History Medical history: Reports: hypertension Surgical history: Reports: no surgical history Psychiatric history: Reports: no psych history - Social History Smoking Status: Never smoker Alcohol use: Reports: none Drug use: Reports: none Physical Exam - General Limitations: no limitations General appearance: alert - Head Head exam: atraumatic, normocephalic, normal inspection - Eye Eye exam: Present: normal appearance, PERRL, EOMI - ENT ENT exam: normal exam, normal oropharynx, mucous membranes moist - Neck Neck exam: Present: normal inspection, full ROM, trachea midline - Chest Chest inspection: Present: normal inspection, symmetric chest wall rise, tenderness (Mild tenderness around left pacemaker site, no pus or erythema. No other chest tenderness on exam.) - Respiratory Respiratory exam: Present: normal lung sounds bilaterally - Cardiovascular Cardiovascular exam: Present: regular rate, normal rhythm, normal heart sounds - Abdominal Exam Abdominal exam: Present: soft, Non-Tender. Absent: tenderness, distention, guarding, rebound, rigidity - Extremities Exam Extremities exam: Present: normal inspection, full ROM, pedal edema (Pitting edema bilateral lower extremities). Absent: tenderness - Neurological Exam Neurological exam: Present: alert, oriented X3 - Psychiatric Psychiatric exam: Present: normal affect, normal mood - Skin Skin exam: Present: warm, dry, intact, normal color Course Course Narrative: Vitals within normal limits. Physical exam shows Mild tenderness around left pacemaker site, no pus or erythema. No other chest tenderness on exam. Lungs clear to auscultation. Patient has bilateral lower extremity pitting edema. Otherwise, the rest of physical exam was benign. Due to recent surgery, sudden onset shortness of breath and pleuritic chest pain, refusal of lovenox recently , current concern for pulmonary embolism. Will obtain cardiac workup, basic labs, trop, CXR, CTA to assess for PE. EKG showed paced rhythm with no acute ST changes. 16:36 patient has elevated white blood cell count, troponin 0.04. Patient given aspirin. Patient was also given morphine and nitroglycerin for pain, Zofran for nausea. Patient had an elevated d-dimer. Currently waiting on CT results. Chest x-ray showed enlarged cardiac silhouette, linear opacity in the left lung base. Patient had run of possible V tach run on monitor, repeat EKG obtained and showed irregular rhythm with occaisonal pacer spikes. When assessed, patient had what appeared to be 3:1 a flutter, will obtain another EKG. Dr. Haile contacted, he will review EKGs. Recommended admission, giving the patient lopressor 5mg to suppress any underlying tachyarhtymias. However, patient's HR has dipped below 60 to mid 50s occaisonally, (pacer set to 60). Will give fluid bolus instead and reassess. Pacer was also interrogated in the ED and sent. 17:03 CT showed No evidence of pulmonary embolus. Patchy mild airspace disease within the lung bases, most prominent in the lower lobes. Findings likely represent atelectasis or edema. Infection cannot be entirely excluded. A few pulmonary nodules which measure up to 3 mm. Incompletely evaluated 2.4 x 1.7 cm fatty lesion within the musculature of the right lateral chest. Findings may represent a intramuscular lipoma or atypical lipomatous tumor. Recommend follow-up with orthopedic oncologist. 17:21 I spoke with the bullet swaging machine adjuster again, after reviewing the EKGs, he was concern for new onset A. fib or a flutter underneath pacemaker. [employer] also called and talked with Dr. Baez, they stated the patient has been in an atrial arrhythmia since 08/19/2016. This is new onset for the patient. Due to concern for new onset A. fib or a flutter, bullet swaging machine adjuster recommended that we start the patient on heparin or Lovenox. Heparin and Lovenox were discussed with the patient, the patient has decided on Lovenox. We will give her 1 mg/kg injection here and then admitted to the hospitalist. Cardiology has been consulted. We will also start the patient on vancomycin and cefepime for any infection and may be present on CT scan of bilateral lower lobes. 19:[address] Membreno again, concern for continued low blood pressures of 90s over 60s. Patient was given 2 L bolus total. I recommended ICU or 2North instead of his current assigned 2A bed. He requested that the patient be sent to 2 N. Bed management was called. Patient remains stable at this time. Chest X-Ray 08/21/16 14:22 IMPRESSION: Cardiopericardial silhouette appears borderline enlarged, possibly exaggerated by AP technique and level of inspiration. Minimal linear opacity in the left base, likely atelectasis. Superimposed pneumonia is a possibility. D/ / Alok Beck MD / Alok Beck MD Interpreting Provider: Alok Beck MD Vital Signs Temperature 98 F 08/21/16 14:17 Pulse Rate 60 08/21/16 14:17 Respiratory Rate 22 08/21/16 14:17 Blood Pressure 123/78 08/21/16 14:17 O2 Sat by Pulse Oximetry 97 08/21/16 14:17 Temperature 98 F 08/21/16 14:17 Pulse Rate 59 08/21/16 17:21 Respiratory Rate 18 08/21/16 17:21 Blood Pressure 118/74 08/21/16 17:21 O2 Sat by Pulse Oximetry 97 08/21/16 17:21 Oxygen Delivery Oxygen Delivery Non Rebreather Mask Chest Pain - MDM Narrative Medical decision making narrative: Vitals within normal limits. Physical exam shows Mild tenderness around left pacemaker site, no pus or erythema. No other chest tenderness on exam. Lungs clear to auscultation. Patient has bilateral lower extremity pitting edema. Otherwise, the rest of physical exam was benign. Due to recent surgery, sudden onset shortness of breath and pleuritic chest pain, refusal of lovenox recently , current concern for pulmonary embolism. Will obtain cardiac workup, basic labs, trop, CXR, CTA to assess for PE. EKG showed paced rhythm with no acute ST changes. 16:36 patient has elevated white blood cell count, troponin 0.04. Patient given aspirin. Patient was also given morphine and nitroglycerin for pain, Zofran for nausea. Patient had an elevated d-dimer. Currently waiting on CT results. Chest x-ray showed enlarged cardiac silhouette, linear opacity in the left lung base. Patient had run of possible V tach run on monitor, repeat EKG obtained and showed irregular rhythm with occaisonal pacer spikes. When assessed, patient had what appeared to be 3:1 a flutter, will obtain another EKG. Dr. Haile contacted, he will review EKGs. Recommended admission, giving the patient lopressor 5mg to suppress any underlying tachyarhtymias. However, patient's HR has dipped below 60 to mid 50s occaisonally, (pacer set to 60). Will give fluid bolus instead and reassess. Pacer was also interrogated in the ED and sent. 17:03 CT showed No evidence of pulmonary embolus. Patchy mild airspace disease within the lung bases, most prominent in the lower lobes. Findings likely represent atelectasis or edema. Infection cannot be entirely excluded. A few pulmonary nodules which measure up to 3 mm. Incompletely evaluated 2.4 x 1.7 cm fatty lesion within the musculature of the right lateral chest. Findings may represent a intramuscular lipoma or atypical lipomatous tumor. Recommend follow-up with orthopedic oncologist. 17:21 I spoke with the bullet swaging machine adjuster again, after reviewing the EKGs, he was concern for new onset A. fib or a flutter underneath pacemaker. [employer] also called and talked with Dr. Baez, they stated the patient has been in an atrial arrhythmia since 08/19/2016. This is new onset for the patient. Due to concern for new onset A. fib or a flutter, bullet swaging machine adjuster recommended that we start the patient on heparin or Lovenox. Heparin and Lovenox were discussed with the patient, the patient has decided on Lovenox. We will give her 1 mg/kg injection here and then admitted to the hospitalist. Cardiology has been consulted. We will also start the patient on vancomycin and cefepime for any infection and may be present on CT scan of bilateral lower lobes. - Medical Records Medical records reviewed: Yes I reviewed the patient's medical records. - Lab Data Lab results reviewed: Yes I reviewed the patient's lab results. Result diagrams: 08/21/16 15:05 08/21/16 15:05 Lab Results 08/21/16 08/21/16 08/21/16 Range/Units 15:05 15:05 15:05 WBC 16.3 H D (4.3-11.1) K/mcL RBC 4.21 (4.19-5.50) M/mcL Hgb 12.7 L (12.9-16.9) g/dL Hct 38.9 (37.5-50.1) % MCV 92.4 (83.0-100.0) fL MCH 30.2 (28.0-33.3) pg MCHC 32.6 (31.6-35.5) g/dL RDW 14.3 (11.5-14.5) % Plt Count 383 (140-400) K/mcL MPV 10.1 (9.4-12.4) fL Immature Gran % 0.6 (0-4) % Seg Neutrophils % 83.9 % Lymphocytes % 4.8 % Monocytes % 10.5 % Eosinophils % 0.0 % Basophils % 0.2 % Neutrophils # 13.7 H (1.6-8.9) K/mcL Lymphocytes # 0.8 (0.6-4.6) K/mcL Monocytes # 1.7 H (0.0-1.3) K/mcL Eosinophils # 0.0 (0.0-0.6) K/mcL Basophils # 0.0 (0.0-0.2) K/mcL PT 11.9 (9.4-12.1) Seconds INR 1.1 APTT 28.2 (26.0-36.0) Seconds D-Dimer 980 H (0-500) ng/mLFEU Sodium (136-145) mEq/L Potassium (3.5-4.5) mEq/L Chloride (98-109) mEq/L Carbon Dioxide (19-29) mEq/L BUN (8-26) mg/dL Creatinine (0.72-1.25) mg/dL Est GFR ( Amer) (> 60) Est GFR (Non-Af Amer) (> 60) BUN/Creatinine Ratio (6-26) Glucose (70-99) mg/dL Calculated Osmolality (280-300) Calcium (8.6-10.8) mg/dL Magnesium (1.6-2.6) mg/dL Troponin I (0-0.03) ng/mL B-Natriuretic Peptide 577 H (0-100) pg/mL 08/21/16 08/21/16 Range/Units 15:05 15:05 WBC (4.3-11.1) K/mcL RBC (4.19-5.50) M/mcL Hgb (12.9-16.9) g/dL Hct (37.5-50.1) % MCV (83.0-100.0) fL MCH (28.0-33.3) pg MCHC (31.6-35.5) g/dL RDW (11.5-14.5) % Plt Count (140-400) K/mcL MPV (9.4-12.4) fL Immature Gran % (0-4) % Seg Neutrophils % % Lymphocytes % % Monocytes % % Eosinophils % % Basophils % % Neutrophils # (1.6-8.9) K/mcL Lymphocytes # (0.6-4.6) K/mcL Monocytes # (0.0-1.3) K/mcL Eosinophils # (0.0-0.6) K/mcL Basophils # (0.0-0.2) K/mcL PT (9.4-12.1) Seconds INR APTT (26.0-36.0) Seconds D-Dimer (0-500) ng/mLFEU Sodium 138 (136-145) mEq/L Potassium 5.0 H (3.5-4.5) mEq/L Chloride 105 (98-109) mEq/L Carbon Dioxide 22 (19-29) mEq/L BUN 31 H (8-26) mg/dL Creatinine 1.32 H (0.72-1.25) mg/dL Est GFR ( Amer) > 60 (> 60) Est GFR (Non-Af Amer) 52 L (> 60) BUN/Creatinine Ratio 23 (6-26) Glucose 144 H (70-99) mg/dL Calculated Osmolality 295 (280-300) Calcium 9.2 (8.6-10.8) mg/dL Magnesium 1.8 (1.6-2.6) mg/dL Troponin I 0.04 H* (0-0.03) ng/mL B-Natriuretic Peptide (0-100) pg/mL - Radiology Data Radiology results reviewed: Yes I reviewed the patient's radiology results. Chest X-Ray 08/21/16 14:22 IMPRESSION: Cardiopericardial silhouette appears borderline enlarged, possibly exaggerated by AP technique and level of inspiration. Minimal linear opacity in the left base, likely atelectasis. Superimposed pneumonia is a possibility. D/ / Alok Beck MD / Alok Beck MD Interpreting Provider: Alok Beck MD Chest CTA 08/21/16 15:05 IMPRESSION: No evidence of pulmonary embolus. Patchy mild airspace disease within the lung bases, most prominent in the lower lobes. Findings likely represent atelectasis or edema. Infection cannot be entirely excluded. A few pulmonary nodules which measure up to 3 mm. Incompletely evaluated 2.4 x 1.7 cm fatty lesion within the musculature of the right lateral chest. Findings may represent a intramuscular lipoma or atypical lipomatous tumor. Recommend follow-up with orthopedic oncologist. D/ / Ira Lockhart MD / Ira Lockhart MD Interpreting Provider: Ira Lockhart MD - EKG Data EKG attestation: Yes I reviewed and interpreted this EKG. EKG results narrative: 08/21/2016 at 14:30. Ventricularly paced rhythm. Rate 60. QTc 494. No acute ST changes from previous EKG on 08/16/2016 EKG #2. 08/21/2016 at 16:36. Irregular rhythm, possibly A. fib with occasional pacer spikes. Rate 87. QTc 461. EKG #3. 08/21/2016 at 16:57. Possible a flutter with irregular pacer spikes. Rate 73. QTc 506. S.B.A.R. - S.B.A.R. Situation: Demographics, MOA Background: Presenting Complaint, Relevant PMH, Meds, & Allergies Assessment: Vital Signs, Course and respsone to treatment, Exam Concerns, Patient/Family Expectation, Pertinant Lab Results, Outstanding Labs Recommendation: Barrier(s) to disposition, Recommendation based on pending studies, treatments, or consults S.B.A.R. Repor Time: 17:31 Attestation Statement - Attestation Attestation: I examined this patient and my medical decision-making was reviewed with the SERVICE CONSULTANT/PA/Advanced Practice Nurse/Resident Physician. I agree with the documented findings, disposition and treatment plan as described except to the extent set forth below. pt in and out of some atrial arrythmia. [employer] eval'd. patient having pvc' s but no v tach present. resident spoke with cardiology. plan to admit to tele bed. consult to cardiology. we did text over 3 ekg's to him to view for this atrial issue. will supplement magnesium as well. total critical care time of 35 minutes; time spent in medical management of his advanced cardia arrythmia and potential for deteoriation and in conulstation with bullet swaging machine adjuster.
[2016-08-21 15:26] LABS: Basophils % 0.2 %; Hematocrit 38.9 % (37.5-50.1); Hemoglobin 12.7 g/dL (12.9-16.9); Immature Granulocytes % 0.6 % (0-4); Lymphocytes # 0.8 K/mcL (0.6-4.6); Lymphocytes % 4.8 %; Mean Corpuscular HGB Conc 32.6 g/dL (31.6-35.5); Mean Corpuscular Hemoglobin 30.2 pg (28.0-33.3); Mean Corpuscular Volume 92.4 fL (83.0-100.0); Mean Platelet Volume 10.1 fL (9.4-12.4); Monocytes # 1.7 K/mcL (0.0-1.3); Monocytes % 10.5 %; Neutrophils # 13.7 K/mcL (1.6-8.9); Platelet Count 383 K/mcL (140-400); Red Blood Count 4.21 M/mcL (4.19-5.50); Red Cell Distribution Width 14.3 % (11.5-14.5); Segmented Neutrophils % 83.9 %
[2016-08-21 15:32] LABS: BUN/Creatinine Ratio 23 (6-26); Blood Urea Nitrogen 31 mg/dL (8-26); Calcium 9.2 mg/dL (8.6-10.8); Carbon Dioxide 22 mEq/L (19-29); Chloride 105 mEq/L (98-109); Glucose 144 mg/dL (70-99); Osmolality,Calculated 295 (280-300); Sodium 138 mEq/L (136-145); eGFR For African Americans > 60 (> 60); eGFR For Non-African Americans 52 (> 60)
[2016-08-21 15:34] LABS: INR 1.1; Prothrombin Time 11.9 Seconds (9.4-12.1)
[2016-08-21 15:37] LABS: Activated Partial Thrombo Time 28.2 Seconds (26.0-36.0)
[2016-08-21] MEDS ORDERED: Nitroglycerin 0.4 MG TAB.SUBL SL PRN (16:19)
[2016-08-21] MEDS ORDERED: *HR* Morphine 2 MG/ML SYRINGE IVP ONE (16:22)
[2016-08-21] MEDS ORDERED: Ondansetron 4 MG/2 ML VIAL ONE (16:34)
[2016-08-21] MEDS ORDERED: Aspirin 325 MG TABLET PO ONE (16:34)
[2016-08-21] MEDS ORDERED: Ondansetron 4 MG/2 ML VIAL IVP ONE (16:34)
[2016-08-21] MEDS ORDERED: 0.9 % Sodium Chloride 1,000 ML IVC ONE ×3 (16:57→18:58)
[2016-08-21 17:18] LABS: Magnesium 1.8 mg/dL (1.6-2.6)
[2016-08-21] MEDS ORDERED: Vancomycin 1,000 MG in D5% in Water 250 ML IVPB ONE (17:26)
[2016-08-21] MEDS ORDERED: *HR* Enoxaparin 80 MG/0.8 ML SYRINGE SQ ONE (17:27)
[2016-08-21] MEDS ORDERED: Ketorolac 30 MG/ML VIAL IVP ONE (17:35)
[2016-08-21] MEDS ORDERED: 0.9 % Sodium Chloride 1,000 ML ONE (17:37)
[2016-08-21] MEDS ORDERED: Magnesium Sulfate 1 GM in D5% in Water 100 ML IVPB ONE ×2 (17:49→22:09)
[2016-08-21] MEDS ORDERED: Cefepime HCl 2,000 MG in D5% in Water (Mini-Bag+) 100 ML IVPB ONE (18:00)
[2016-08-21] MEDS ORDERED: Naloxone 0.4 MG/ML INJ IVP PRN (21:42)
[2016-08-21] MEDS ORDERED: Amiodarone Premix 150 MG/100 ML BAG IVPB ONE ×2 (21:56→22:00)
[2016-08-21] MEDS ORDERED: *HR* Amiodarone 150 MG/3 ML VIAL IVPB ONE (21:58)
[2016-08-21] MEDS: 0.9 % Sodium Chloride 1,000 ML IVC SCH (22:00)
[2016-08-21] MEDS ORDERED: Calcium Gluconate 1,000 MG in D5% in Water 100 ML IVPB ONE (22:05)
--- NOTE | 2016-08-21 23:15 | Internal Med History&Physical ---
<Janelle Staton - Last Filed: 08/21/16 23:32> Date of Encounter: 08/21/16 Time of Encounter: 21:30 Assessment and Plan (1) New onset atrial flutter Current visit: Yes Status: Acute 1 patient had pacemaker placed on for secondary AV block. He converted to atrial flutter on Sunday. No past history. Patient was initiated on Lovenox 2 cardiology has been consulted-recommended Lovenox or heparin as well as Lopressor 3 continuous cardiac monitoring 4 patient has been hypertensive patient given IV fluid bolus (2) Pneumonia Current visit: Yes Status: Acute 1 patient given empiric HCAP antibiotic coverage of vancomycin and cefepime for any infection present, reported per CT scan of bilateral l lower lobe possible infectious process. 2 oxygen as needed to maintain SPO2 greater than 92% Qualifiers: Pneumonia type: due to unspecified organism Laterality: bilateral Lung location: lower lobe of lung Qualified Code(s): J18.9 - Pneumonia, unspecified organism (3) Elevated troponin Current visit: No Status: Acute 1 likely 0.04 continue to trend troponins 2 cardiology consulted 3 continuous cardiac monitoring (4) Uncontrolled hypertension Current visit: No Status: Acute 1 presently hypotensive we will hold antihypertensives for now. Resume once back to baseline (5) DVT prophylaxis Current visit: No Status: Acute Lovenox Internal Medicine - H&P: HPI Chief complaint: cp Admitted From: Emergency Dept Plans for Post Hospital Care: Home History of present illness: Mr. Navarro is a 80 year old male past medical history of second-degree AV block recent pacemaker placement 5 days ago hypertension . According to patient he was discharged on Sunday from the hospital status post pacemaker placement. Prior to discharge patient was to receive this with Lovenox which she refused. He had been doing well until Sunday 1:30 in the morning patient was awaken with sudden onset of chest pain shortness of breath. Chest pain was midsternal nonradiating more intense upon inspiration. Chest pain continued throughout the morning it worsened with exertion. He denied any fever or chills nausea vomiting fevers abdomen pain or diarrhea. Denies any past history of NH or stenting. He presented to the ER with the above complaints. According to ER records patient's initial troponin was elevated 0.0 4W BCs elevated at 16.3 potassium was 5 mag was 1.8 patient was given Zofran for nausea as well as aspirin morphine and nitroglycerin. D-dimer was elevated CTA was obtained which was negative for pulmonary embolus however findings suspicious for atelectasis or edema possibly infection process. While in the ER patient did have a run of possible V. tach on the monitor EKG was obtained and it was irregular with occasional pacer spikes appeared to be in 3-1 flutter. ER physician did speak with Dr. Lagos who recommended giving the patient Lopressor however the patient's blood pressure was low he was given IV fluids pacer was interrogated and sent [employer] did contact the ER informed that patient had been in atrial arrhythmia since 08/19/2016 patient was initiated on Lovenox and was given empiric M biotic coverage for possible pneumonia he was admitted for further workup evaluation. Upon assessment patient appears to be in mild distress. He is diaphoretic pale, nauseated complaining of 4 out of 10 chest pressure. Lungs sounds are clear heart rhythm regular S1-S2 lower extremity edema bilaterally. Pacemaker site dressing intact with no redness swelling or drainage noted Rhythm on the monitor appears to be atrial flutter with paced rhythm, rate is erratic ranging from 40s to 110. At times it appears patient is an ventricular tachycardia pulse present no loss of consciousness. Patient's blood pressure dropped down to 70 systolic. Patient given IV fluid bolus notify Dr. Vance of changes in patient's condition. Does not really do a bedside reviewing his EKG patient was given 150 mg bolus of amiodarone as well as magnesium, calcium chloride. speaks with Dr. Rothman concerning patient's condition. Patient's been transferred to ICU for further monitoring. He did discuss CODE STATUS with patient and who requests patient to be full code Past Med Surg Social Fam HX - Past Medical History Medical history: hypertension Psychiatric history: no psych history - Past Surgical History Surgical History: pacemaker - Social History Smoking Status: Never smoker Smokeless Tobacco Status: No Alcohol use: none Drug use: none - Family History Mother Living Status: Hx Family Cancer: Yes Father Living Status: Internal Medicine - H&P: Meds Amlodipine [Norvasc] 10 mg PO DAILY #30 tablet 08/18/16 [Rx] Aspirin Enteric Coated [Aspirin EC] 81 mg PO DAILY #30 tablet. 08/18/16 [Rx] Losartan [Cozaar] 50 mg PO DAILY 30 Days 08/18/16 [Rx] Allergies No Known Allergies Allergy (Verified 08/16/16 10:16) All Systems PM: A 10-system review of systems was performed and is negative for pertinent findings except as documented above in the HPI. - Constitutional Constitutional: no chills, no fever(s), no night sweats - EENT Eyes: no change in vision, no discharge, no pain, no photophobia - Cardiovascular Cardiovascular ROS IM: chest pain, diaphoresis, dyspnea, edema - Respiratory Respiratory: dyspnea on exertion - Gastrointestinal Gastrointestinal: nausea, no abdominal pain, no diarrhea, no hematemesis, no hematochezia, no melena, no vomiting - Musculoskeletal Musculoskeletal ROS IM: no numbness, no tingling - Neurological Neurological ROS: no confusion, no convulsions, no focal weakness, no numbness, no tingling, no tremor(s) - Constitutional Vitals: Temp Pulse Resp BP Pulse Ox 98.2 F 46 18 112/60 98 08/21/16 20:27 08/21/16 20:27 08/21/16 20:27 08/21/16 20:27 08/21/16 20:27 General appearance: Present: A&O X 3, answers questions appropriately - Head Head exam: Present: atraumatic, normocephalic - Eye Eye exam: Present: PERRL, conjuntiva pink, sclera anicteric Pupils: Present: PERRL - Neck Neck exam general surgery: Present: supple, trachea midline. Absent: lymphadenopathy - Respiratory Respiratory exam: Present: CTAB. Absent: accessory muscle use, rales, rhonchi, wheezes - Cardiovascular Cardiovascular exam: Present: RRR, +S1, +S2. Absent: diastolic murmur, gallop, rubs, systolic murmur - GI/Abdominal GI/Abdominal exam: Present: normal bowel sounds, soft, no peritoneal signs. Absent: distended, tenderness - Extremities Exam Extremities exam: Present: pedal edema, warm, radial pulses palpable and symetrical. Absent: calf tenderness, cyanotic - Neurological Exam Neurological exam: Present: CN II-XII intact, oriented X3, no focal deficits. Absent: pronater drift, facial droop, speech deficit - Skin Skin exam: Present: dry, intact Internal Med - H&P Results - Labs CBC & Chem 7: 08/21/16 15:05 08/21/16 15:05 Labs: Cardiac Enzymes 08/21/16 Range/Units 21:53 Troponin I 0.03 (0-0.03) ng/mL - EKG Data EKG comments: 08/21/16 23:20 EKG reviewed with atrial flutter with paced rhythm what appears to be V. tach 08/21/16 23:21 - Diagnostic Studies Other Images Additional comments: Chest X-Ray 08/21/16 14:22 IMPRESSION: Cardiopericardial silhouette appears borderline enlarged, possibly exaggerated by AP technique and level of inspiration. Minimal linear opacity in the left base, likely atelectasis. Superimposed pneumonia is a possibility. D/ / Alok Beck MD / Alok Beck MD Interpreting Provider: Alok Beck MD Chest CTA 08/21/16 15:05 IMPRESSION: No evidence of pulmonary embolus. Patchy mild airspace disease within the lung bases, most prominent in the lower lobes. Findings likely represent atelectasis or edema. Infection cannot be entirely excluded. A few pulmonary nodules which measure up to 3 mm. Incompletely evaluated 2.4 x 1.7 cm fatty lesion within the musculature of the right lateral chest. Findings may represent a intramuscular lipoma or atypical lipomatous tumor. Recommend follow-up with orthopedic oncologist. D/ / Ira Lockhart MD / Ira Lockhart MD Interpreting Provider: Ira Lockhart MD <Stiven Vanceluis fernandojarad R - Last Filed: 08/22/16 03:13> Date of Encounter: 08/21/16 Assessment and Plan (1) Shock circulatory Current visit: Yes Status: Acute Possibly due to sepsis versus cardiogenic. Pt did not respond to multiple fluid boluses. Patient is started on norepinephrine infusion. (2) Atrial flutter with rapid ventricular response Current visit: Yes Status: Acute Pt was given metoprolol and amiodarone. Cardiology consultation. (3) Hyperkalemia Current visit: Yes Status: Acute Treatment Calcium gluconate, sodium bicarbonate and Kayexalate. Nephrology consultation (4) Acute kidney injury Current visit: Yes Status: Acute Possibly secondary to hypotension / volume depletion. On IV fluids and vasopressors. Nephrology consultation (5) Chest pain Current visit: Yes Status: Acute Possibly related to demand ischemia. Trend troponins. Cardiology consult Qualifiers: Chest pain type: unspecified Qualified Code(s): R07.9 - Chest pain, unspecified (6) UTI (urinary tract infection) Current visit: Yes Status: Acute Pt is on cefepime. Urine cultures pending Qualifiers: Urinary tract infection type: site unspecified Hematuria presence: without hematuria Qualified Code(s): N39.0 - Urinary tract infection, site not specified (7) Sepsis Current visit: Yes Status: Acute Pt is on cefepime and vancomycin. Urine cultures pending Qualifiers: Sepsis type: sepsis due to unspecified organism Qualified Code(s): A41.9 - Sepsis, unspecified organism (8) Metabolic acidosis Current visit: Yes Status: Acute Possibly due to circulatory shock and tissue hypoperfusion. Check lactate levels Internal Medicine - H&P: HPI History of present illness: Mr. Navarro is a 80 year old male All Systems PM: A 10-system review of systems was performed and is negative for pertinent findings except as documented above in the HPI. - Constitutional Vitals: Temp Pulse Resp BP Pulse Ox 97.8 F 88 16 98/75 97 08/22/16 02:00 08/22/16 02:45 08/22/16 02:45 08/22/16 02:45 08/22/16 02:45 Internal Med - H&P Results - Labs CBC & Chem 7: 08/22/16 00:55 08/22/16 00:55 Labs: Short CBC 08/22/16 Range/Units 00:55 WBC 15.4 H (4.3-11.1) K/mcL Hgb 11.5 L (12.9-16.9) g/dL Hct 35.8 L (37.5-50.1) % Plt Count 316 (140-400) K/mcL Neutrophils # 13.7 H (1.6-8.9) K/mcL BMP 08/22/16 00:55 Sodium 136 Potassium 6.1 H D Chloride 108 Carbon Dioxide 18 L BUN 37 H Creatinine 2.06 H D Glucose 289 H Calcium 7.7 L D Cardiac Enzymes 08/21/16 08/22/16 Range/Units 21:53 00:55 Troponin I 0.03 0.03 (0-0.03) ng/mL Urine 08/22/16 Range/Units 02:13 Urine Color Dark Yellow (Yellow) Urine Clarity Clear (Clear) Urine pH 5.5 (5.0-8.0) pH Units Ur Specific [place] > 1.030 H (1.010-1.025) Urine Protein 100 H (Neg-Trace) mg/dL Urine Glucose (UA) Normal (Normal) mg/dL - Impressions ITS Impressions Chest X-Ray 08/21/16 23:31 IMPRESSION: Central line in satisfactory position. Pulmonary vascular congestion with superimposed infection not excluded. D/ / Chad Van MD / Chad Van MD Interpreting Provider: Chad Van MD - Attending Attestation I performed history and physical examination of the patient and discussed management with the HEALTHCARE MANAGEMENT / ANP. I reviewed the HEALTHCARE MANAGEMENT / ANPs note and agree with documented findings and plan of care. 80 Y/M with h/o second-degree AV block s/p recent pacemaker placement 5 days ago and h/o hypertension. He presented with chest pain, shortness of breath started at about 1:30 AM. Patient was noted to have arrhythmias (A flutter / VT ), on the playground monitor/EKG. He had physician discussed with pool cleaner Dr Haile the patient was taught to have new onset atrial flutter/fibrillation. D- dimer was elevated and hence a CT of the chest was done. ED physician recommended antibiotics for suspected pneumonia. He was noted to be hypotensive and was given 2 L of normal saline bolus. He was transferred to medical step down floor, where he was noted to have hypotension, chest pain and wide complex tachycardia. The cardiac rhythm was suspicious for ventricular tachycardia. Patient was awake and the BP was 103/69. He was given 150 mg of amiodarone. I discussed the EKG with pool cleaner Dr. Haile, who felt that the pt has LBBB and now has A flutter with RVR; no VT. subsequently patient was again noted to be hypotensive with systolic blood pressures in the 70s and 80s. He was given a normal saline boluses x 2 litres, with no significant improvement. He was transferred to intensive care unit, and right IJ line was placed and started on norepinephrine infusion. Patients heart rate was variable. Pt is alert and seem to have perfusion. When the BP is stable and if the pt is in RVR, then will consider diltiazem infusion. Pt has leukocytosis and tachycardia Suspected pneumonia and hypotension: Possible sepsis. pt is on antibiotics; IV fluids and now on vasopressors. Check lactate. Treat hyperkalemia with kayexalate, calcium gluconate and sodium bicarbonate. Will consult Pulmonary critical care to transfer care to ICU team; Cardiology and nephrology. Pt is critically ill and critical care time spent with the pt on 08/21/16, in the step down unit and ICU, in providing direct care; co-ordination of care and counselling (excluding time spent on procedures) is about 50 minutes
[2016-08-21] MEDS ORDERED: *HR* LORazepam 2 MG/ML VIAL IVP ONE (23:25)
[2016-08-21] MEDS: Norepinephrine 4 MG in D5% in Water 250 ML IVC SCH (23:52)
[2016-08-22 01:03] LABS: Basophils % 0.1 %; Hematocrit 35.8 % (37.5-50.1); Hemoglobin 11.5 g/dL (12.9-16.9); Immature Granulocytes % 1.1 % (0-4); Lymphocytes # 0.5 K/mcL (0.6-4.6); Lymphocytes % 3.1 %; Mean Corpuscular HGB Conc 32.1 g/dL (31.6-35.5); Mean Corpuscular Hemoglobin 30.4 pg (28.0-33.3); Mean Corpuscular Volume 94.7 fL (83.0-100.0); Mean Platelet Volume 10.2 fL (9.4-12.4); Monocytes # 1.1 K/mcL (0.0-1.3); Monocytes % 7.1 %; Neutrophils # 13.7 K/mcL (1.6-8.9); Platelet Count 316 K/mcL (140-400); Red Blood Count 3.78 M/mcL (4.19-5.50); Red Cell Distribution Width 14.6 % (11.5-14.5); Segmented Neutrophils % 88.6 %
[2016-08-22 01:20] LABS: Calcium 7.7 mg/dL (8.6-10.8); Potassium 6.1 mEq/L (3.5-4.5)
[2016-08-22] MEDS ORDERED: Calcium Gluconate 1,000 MG in D5% in Water 100 ML IVPB ONE (02:04)
[2016-08-22 02:32] LABS: Bilirubin,Urine Small (Negative); Blood,Urine Negative (Negative); Clarity,Urine Clear (Clear); Color,Urine Dark Yellow (Yellow); Glucose,Urine (UA) Normal (Normal); Ketones,Urine Trace mg/dL (Negative); Leukocyte Esterase,Urine Small (Negative); Nitrite,Urine Negative (Negative); PH,Urine 5.5 pH Units (5.0-8.0); Protein,Urine 100 mg/dL (Neg-Trace); Specific Gravity,Urine > 1.030 (1.010-1.025); Urobilinogen,Urine Normal (Normal)
[2016-08-22 02:35] LABS: Bacteria,Urine None Seen per hpf (None-Few); Hyaline Casts,Urine None Seen per lpf (None-Few); Squamous Epithelial Cell,Urine Many per lpf (None-Few)
--- NOTE | 2016-08-22 03:19 | Event Note ---
Date of Encounter: 08/21/16 Time of Encounter: 23:30 Right internal jugular central venous placement: for administration of vasoactive medications / vasopressors in a pt with refractory hypotension. Verbal and written consent obtained, after explaining the procedure to the pt. Timeout performed. All barrier precautions taken. With Ultrasound guidance right internal jugular vein identified and catheterization done using Seldinger technique, with minimal blood loss. Triple lumen catheter placed and ports were flushed and blood was withdrawn easily. Catheter sutured to the skin. Biopatch used. CXR done and the tip of the catheter in the lower SVC. No pneumothorax noted. Line Can be used for access.
[2016-08-22] MEDS: 0.9 % Sodium Chloride 1,000 ML IVC SCH ×4 (04:34→14:35)
[2016-08-22 04:38] LABS: Potassium 5.8 mEq/L (3.5-4.5)
[2016-08-22] MEDS ORDERED: Vancomycin 1,250 MG in D5% in Water 250 ML IVPB SCH (05:00)
[2016-08-22] MEDS ORDERED: *HR* Dextrose 50 % in Water (Syg) 50 ML SYRINGE IVP PRN (05:52)
[2016-08-22] MEDS ORDERED: D5% in Water 1,000 ML IVC PRN (05:52)
[2016-08-22] MEDS ORDERED: Dextrose Gel 15 GM PO PRN ×2 (05:52)
[2016-08-22] MEDS ORDERED: Cefepime HCl 2,000 MG in D5% in Water (Mini-Bag+) 100 ML IVPB SCH (06:00)
[2016-08-22] MEDS ORDERED: Vancomycin (wt based) 1,000 MG VIAL IVPB SCH (06:00)
[2016-08-22] MEDS: Insulin LISPRO 300 UNITS/3 ML VIAL SQ SCH ×4 (06:21→23:40)
[2016-08-22] MEDS ORDERED: *HR* LORazepam 2 MG/ML VIAL IVP ONE (06:30)
[2016-08-22] MEDS: Norepinephrine 4 MG in D5% in Water 250 ML IVC SCH (08:00)
[2016-08-22] MEDS: Aspirin Enteric Coated 81 MG Tablet PO SCH (08:36)
[2016-08-22] MEDS ORDERED: 0.9 % Sodium Chloride 1,000 ML IVC ONE (09:19)
[2016-08-22] MEDS ORDERED: *HR* Heparin 5,000 UNIT/ML VIAL SQ SCH (09:45)
--- NOTE | 2016-08-22 09:49 | Pulmonology Consult Note ---
Date of Encounter: 08/22/16 Time of Encounter: 09:00 Assessment and Plan (1) Hypotension Current Visit: Yes Status: Acute Cardiac defibrillator placed on 08/17/16 secondary to 2nd degree AV node block. Bedside ultrasound of the chest demonstrated pericardial fluid with findings of possible insidious tamponade. Upon admission there was suspicion of pneumonia on CTA. There were no findings of PE. Given the patient denies cough or sputum production I believe these findings to more likely be atelectasis. Discontinued antibiotics at this time. Will continue to follow WBC and lactate. Stat Echocardiogram ordered, awaiting results. Additional 1L fluid bolus ordered. Continue fluids at 100mls/hr. The patient is on 5mcg of Levophed. Will begin to wean today. Qualifiers: Hypotension type: postprocedural hypotension Qualified Code(s): I95.81 - Postprocedural hypotension (2) Atrial flutter with rapid ventricular response Current Visit: Yes Status: Acute Patient currently stable. Runs of 5-6 beats of wide complex tachycardia. Patient is currently asymptomatic. Awaiting cardiology consult at this time. Will follow recommendations. Input is appreciated. (3) Acute kidney injury Current Visit: Yes Status: Acute In the setting of being given vancomycin and CTA in the ER. Differential includes post contrast injury vs. sepsis vs. hemodynamic compromise. Patient is currently on fluids 100mls/hr. Nephrology consulted. Will continue to monitor closely. (4) Hyperkalemia Current Visit: Yes Status: Acute 5.8 this AM. If the potassium continues to increase will give kayexelate as well as insulin with D5. (5) Elevated troponin Current Visit: No Status: Acute .04> .03 > .03 in the setting of defibrillator placement on 08/17. Possible leak from atrial flutter with runs of wide complex tachycardia. (6) DVT prophylaxis Current Visit: No Status: Acute On Heparin SQ History of Present Illness Consult date: 08/22/16 Requesting physician: Muna Vance Reason for consult: other (critical care management) Chief complaint: Chest pain History of present illness: This is a 80 year old male with PMH of hypertension and 2nd degree AV node block. He underwent pacemaker placement on 08/17 for 2nd degree AV block. Last night he awoke in the middle of the night with chest pain and dyspnea. This pain was described in the middle of his chest and more of a pressure that worsens with deep breaths. The pain persisted until the morning. He was found to have new onset atrial flutter and given amiodarone, magnesium, and calcium cholride. The patient became hypotensive and was started on levophed after he failed to improve his pressure with fluid resuscitation. He continues to have atrial flutter with runs up to 6 beats of wide complex tachycardia. He denies feeling palpitations or chest pain currently. He is conversational in the ICU and able to follow commands. Past Med Surg Social Fam HX - Past Medical History Medical history: hypertension Psychiatric history: no psych history - Past Surgical History Surgical History: pacemaker - Social History Smoking Status: Never smoker Smokeless Tobacco Status: No Alcohol use: none Drug use: none - Family History Mother Living Status: Hx Family Cancer: Yes Father Living Status: Medications and Allergies Amlodipine [Norvasc] 10 mg PO DAILY #30 tablet 08/18/16 [Rx] Aspirin Enteric Coated [Aspirin EC] 81 mg PO DAILY #30 tablet. 08/18/16 [Rx] Losartan [Cozaar] 50 mg PO DAILY 30 Days 08/18/16 [Rx] Allergies No Known Allergies Allergy (Verified 08/16/16 10:16) All Systems: A 10-system review of systems was performed and is negative for pertinent findings except as documented above in the HPI. Physical Examination Vital Signs: Vital Signs, Last 4 Hours Temp Pulse Resp BP Pulse Ox 08/22/16 09:00 70 20 112/75 96 08/22/16 08:07 97.5 F L 08/22/16 08:00 72 08/22/16 07:00 69 20 92/76 96 08/22/16 06:30 93 16 127/72 95 08/22/16 06:00 95 20 101/65 100 General appearance: no acute distress, alert Eyes: nonicteric ENT: oropharynx moist Neck: supple, other (right IJ central venous catheter in place) Effort: normal Inspection: normal Auscultation: bilateral: clear Cardiovascular: irregular rhythm (with wide complex tachycardia visualized on monitor.), other (bedside ultrasound demonstrated pericardial fluid collection) Gastrointestinal: normoactive bowel sounds, soft, non-tender Integumentary: normal Extremities: no cyanosis Musculoskeletal: no deformities normal mental status, non-focal exam mood appropriate Results - Laboratory Findings CBC and BMP: 08/22/16 00:55 08/22/16 03:57 PT/INR, D-dimer PT 11.9 Seconds (9.4-12.1) 08/21/16 15:05 D-Dimer 980 ng/mLFEU (0-500) H 08/21/16 15:05 Abnormal lab findings: Abnormal lab results WBC 15.4 K/mcL (4.3-11.1) H 08/22/16 00:55 RBC 3.78 M/mcL (4.19-5.50) L 08/22/16 00:55 Hgb 11.5 g/dL (12.9-16.9) L 08/22/16 00:55 Hct 35.8 % (37.5-50.1) L 08/22/16 00:55 RDW 14.6 % (11.5-14.5) H 08/22/16 00:55 Neutrophils # 13.7 K/mcL (1.6-8.9) H 08/22/16 00:55 Lymphocytes # 0.5 K/mcL (0.6-4.6) L 08/22/16 00:55 D-Dimer 980 ng/mLFEU (0-500) H 08/21/16 15:05 Potassium 5.8 mEq/L (3.5-4.5) H 08/22/16 03:57 BUN 39 mg/dL (8-26) H 08/22/16 03:57 Creatinine 2.31 mg/dL (0.72-1.25) H 08/22/16 03:57 Est GFR ( Amer) 33 (> 60) L 08/22/16 03:57 Est GFR (Non-Af Amer) 27 (> 60) L 08/22/16 03:57 Glucose 293 mg/dL (70-99) H 08/22/16 03:57 POC Glucose 283 (58-89) H 08/21/16 22:46 Calculated Osmolality 308 (280-300) H 08/22/16 03:57 Lactic Acid 3.8 mmol/L (0.5-2.2) H 08/22/16 08:45 Calcium 8.0 mg/dL (8.6-10.8) L 08/22/16 03:57 C-Reactive Protein 74 mg/L (Less than 5) H 08/22/16 00:55 B-Natriuretic Peptide 432 pg/mL (0-100) H 08/22/16 00:55 Ur Specific [place] > 1.030 (1.010-1.025) H 08/22/16 02:13 Urine Protein 100 mg/dL (Neg-Trace) H 08/22/16 02:13 Urine Ketones Trace mg/dL (Negative) H 08/22/16 02:13 Urine Bilirubin Small (Negative) H 08/22/16 02:13 Ur Leukocyte Esterase Small (Negative) H 08/22/16 02:13 Urine Microscopic RBC 5-15 per hpf (0-3) H 08/22/16 02:13 Urine Microscopic WBC 5-15 per hpf (0-3) H 08/22/16 02:13 Ur Squamous Epith Cells Many per lpf (None-Few) H 08/22/16 02:13 Ur Culture Indicated? YES (NO) A 08/22/16 02:13 - Clinical Findings Intake & Output: Intake & Output 08/21/16 08/22/16 08/22/16 23:59 07:59 15:59 Intake Total 1000 / 3350 1260 / 1260 215 / 215 Output Total 100 / 100 50 / 50 Balance 1000 / 3350 1160 / 1160 165 / 165 Consult Discharge Plan - Plan Referrals: Zarina Thacker MD [Primary Care Provider] - - Attending Attestation I examined this patient and my medical decision-making was reviewed with the CERTIFIED PERSONAL FINANCE COUNSELOR/PA/Advanced Practice Nurse/Resident Physician. I agree with the documented findings, disposition and treatment plan as described except to the extent set forth below.
--- NOTE | 2016-08-22 10:36 | Event Note ---
Date of Encounter: 08/22/16 Time of Encounter: 10:24 Patient examined, chart and all data reviewed as well as imaging studies. I reviewed the evaluation and management and agree with the plans as outlined by Dr. Le is comprehensive consultation note. In brief, this patient recently underwent pacemaker insertion for heart block and re-presented to the hospital with chest pain but denied concurrent difficulty with fever, chills, cough or sputum production. Aside from chest pain, the patient also admitted to mild fatigue and perhaps mild breathlessness since his last evaluation at the time of pacemaker insertion. He was hypotensive. Furthermore, there was a very mild elevation of lactate level and evidence of acute kidney injury. Based upon the evaluation by the hospital physician admitting the patient, it was his impression the patient may have sepsis and pneumonia as etiology of hypotension hence antibiotics were initiated and the patient received intravenous fluids as well as pressor agent. This morning, the patient still requires pressor agent support and I note worsening of renal function. The patient is a lifelong nonsmoker does not have well-established chronic pulmonary cardiovascular or other disorders. This morning, the patient only notes mild chest discomfort and fatigue but otherwise voices no specific complaints. Examination reveals an elderly male he is awake and alert in no distress his vitals were reviewed and I note that he requires approximately 5 g of Levophed in order to maintain an acceptable mean blood pressure at 65 mmHg. Head normocephalic eyes were normal, pupils reactive and oral pharyngeal exam unremarkable. Neck exam notable for the presence of right internal jugular central venous catheter, perhaps mild jugular prominences noted. Auscultation of the chest reveals reduced breath sounds at the bases but clear upper lung zones. Cardiac exam is notable for an irregular rate and rhythm ( bedside monitor discloses the presence of atrial fib flutter plus salvos of wide complex tachycardia). Abdominal exam soft bowel sounds are present throughout. His extremities were warm to touch there is trace lower extremity edema pulses are intact. The neurologic exam was unremarkable. Personal review of the CT scan of the chest is notable for absence of thromboembolic disease. Bibasilar subsegmental patchy densities are noted most consistent with in my opinion atelectasis. The white count is elevated, mild anemia is noted as well as progressive elevation of BUN/creatinine. Focused ultrasound evaluation of the chest is notable for a moderate pericardial effusion. The IVC is prominent and there appears to be compression of the right ventricle by moderate pericardial effusion although the imaging is suboptimal. Prescience #1 hypotension possibly due to pericardial effusion with tamponade (? ) as opposed to shock related to sepsis #2 history of heart block status post pacemaker insertion currently no new onset atrial fib flutter and salvos of wide complex tachycardia #3 acute kidney injury, presumably ATN secondary to hemodynamic compromise. Given low probability of septic shock in this individual as the explanation for hypotension, antibiotics have been discontinued at this time. Stat echocardiogram has been ordered and formal cardiology consultation is pending at this time. The patient will be maintained in the intensive care unit setting pending clarity of the etiology of hypotension. If possible, pressor agent will be titrated downward and possibly discontinued later today. Additional volume be administered via bolus at this time given concern for possible cardiac tamponade . Management was reviewed with Dr. Le as well as during multidisciplinary critical care rounds. Howard Alejandra [phone]
[2016-08-22 10:53] LABS: Ionized Calcium 1.08 mmol/L (1.15-1.35)
--- NOTE | 2016-08-22 11:10 | Cardiology Consult Note ---
Date of Encounter: 08/22/16 Time of Encounter: 11:06 Assessment and Plan (1) Chest pain Current Visit: Yes Status: Acute Pt presents with sudden onset of chest pain that was constant for over 24 hours. Troponin 0.04, 0.03, 0.03. He is found to have atrial flutter ongoing since 08/19/16. Runs of non sustained wide complex tachycardia. Unable to tolerte bb. CT negative for PE, patchy airspace disease more predominate in BLL. Atelectasis vs pulmonary edema. Infectious process could not be excluded. Pulmonology consulted. Appreciate input. Bedside US demonstrated possible pericardia effusion. Concern for tamponade, pt hypotensive. Stat TTE ordered. We will follow TTE with you. Qualifiers: Chest pain type: unspecified Qualified Code(s): R07.9 - Chest pain, unspecified (2) New onset atrial flutter Current Visit: Yes Status: Acute New diagnosis atrial flutter. Unable to start bb d/t hypotension. Currently rate controlled. No anticoagulation at this time d/t possible pericardial effusion and tamponade. He is a CHADs VASc= 3 for HTN and age. Will re-evaluate once above issues resolved. (3) Wide-complex tachycardia Current Visit: Yes Status: Acute Telemetry reviewed with Dr. Haile. Wide complex rhythm is aflutter with RVR with BBB. Repeat TTe ordered to r/o tamponade. Further recommendation to follow. Discussion w patient/family: The assessment and plan as outlined above was discussed with the patient and/or family members who expressed understanding and agreement. All questions were answered. Thank you for involving us in the care of your patient. Please call with any questions. History of Present Illness Consult date: 08/22/16 Requesting physician: Muna Vance Consult reason: aflutter, v-tach Chief complaint: Chest pain and SOB History of present illness: Mr. 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 He c/o sub sternal chest pain for a day and a half. The pain was constant and mildly increased with deep breaths. He associates it with increasing SOB. He also states he was on a new pill that made his blood pressure go really high. He presented to the ER shortly after onset of his pain . CT chest was negative for PE was found to have possible bilateral LL pneumonia. Initial EKG showed ventricular pacing. He was seen to have possible VT in the emergency room. Repeat EKG showed atrial flutter. A device check showed atrial arrhythmia since 08/19/16 per ER note.He was started on a bb and subsequently developed hypotension. He is currently on neosynephrine gtt and IV fluid bolus. No device check in record. He denies previous history of CAD or irregular heart rhythm. Prior to admission on 08/18/16 he reports he as healthy and not taking any medications. On my exam he is chest pain free. Denies weight gain or edema. Denies palpitations. Chest pain is resolved. Past Med Surg Social Fam HX - Past Medical History Attestation: Yes The following information was validated with the patient. Medical history: hypertension Psychiatric history: no psych history - Past Surgical History Surgical History: pacemaker - Social History Smoking Status: Never smoker Smokeless Tobacco Status: No Alcohol use: none Drug use: none - Family History Mother Living Status: Hx Family Cancer: Yes Father Living Status: Medications and Allergies Amlodipine [Norvasc] 10 mg PO DAILY #30 tablet 08/18/16 [Rx] Aspirin Enteric Coated [Aspirin EC] 81 mg PO DAILY #30 tablet. 08/18/16 [Rx] Losartan [Cozaar] 50 mg PO DAILY 30 Days 08/18/16 [Rx] Allergies No Known Allergies Allergy (Verified 08/16/16 10:16) All Systems Review: A 10-system review of systems was performed and is negative for pertinent findings except as documented above in the HPI. Physical Examination Vital Signs, Last 4 Hours Temp Pulse Resp BP Pulse Ox 08/22/16 10:00 87 17 125/90 97 08/22/16 09:00 70 20 112/75 96 08/22/16 08:07 97.5 F L 08/22/16 08:00 72 General: Conversant, No Apparent Distress HEENT: Atraumatic, Normocephaly, Mucus Membranes Moist Neck: No JVD, Normal carotid pulses Cardiac: Other (iregularly irregular) Lungs: Normal Breath Sounds, No Wheeze, Rales, Rhonchi Neuro: Alert and responsive, No focal deficits noted Abdomen: Soft, Non-Tender Skin: No rashes noted on visualized skin Musculoskeletal: No Chest Wall Tenderness Extremities: No Clubbing, No Cyanosis, No Edema, Normal Pulses Results 08/22/16 00:55 08/22/16 03:57 Lab Results 08/21/16 08/22/16 08/22/16 21:53 00:55 00:55 WBC 15.4 H Hgb 11.5 L Hct 35.8 L Plt Count 316 Sodium 136 Potassium 6.1 H D Chloride 108 Carbon Dioxide 18 L BUN 37 H Creatinine 2.06 H D Glucose 289 H Calcium 7.7 L D Magnesium 2.0 Troponin I 0.03 B-Natriuretic Peptide 08/22/16 08/22/16 08/22/16 00:55 00:55 03:57 WBC Hgb Hct Plt Count Sodium 139 Potassium 5.8 H Chloride 107 Carbon Dioxide 20 BUN 39 H Creatinine 2.31 H Glucose 293 H Calcium 8.0 L Magnesium Troponin I 0.03 B-Natriuretic Peptide 432 H - Imaging and Cardiology Echo: pending, report reviewed - EKG Interpretation EKG results cardiology: personally reviewed (atrial flutter), other (Telemetry review shows ventricular pacing, atrial flutter, and frequent runs of wide complex tachycardia.) Consult Discharge Plan - Plan Referrals: Zarina Thacker MD [Primary Care Provider] -
--- NOTE | 2016-08-22 12:02 | ECHO - Doppler Report ---
Echocardiogram Name: Sean Navarro Date of Study: 08/22/2016 Date: 1935 Ht: 73.0 in Medical Record#: [id number] Age: 80 Wt: 195.0 lb Gender: Male BSA: 2.13 Order #: [id number] Location: [facility] Room #: ICU01 Reading Physician: Zita Grant DO Horse Stud Worker: Bryce Chawla RN Ordering Physician: Seb Le DO Primary Physician: Zarina Thacker MD Indications: Pericarditis/Pericardial Effusion/Tamponade Impressions: Technically challenging study due to atrial flutter. There is a moderately large circumferential pericardial effusion, which is largest along the RV border measuring approximately 2.0-2.4 cm in diameter. Associated findings suggest the presence of early tamponade; IVC is dilated with lack of respiratory collapse, diminished RV cavity size on subcostal images, lack of RA collapse, normal blood pressure, no significant respiratory variation in mitral inflow. Difficult to quantify LV systolic function. Visually, it appears moderately reduced. Recommend repeating Limited study in 24h to re-evaluate degree of pericardial fluid. Findings: Study Quality * Technically challenging due to heart rhythm. ECG Findings * Atrial flutter with intermittent V-pacing. Left Ventricle * Mild concentric left ventricular hypertrophy. * Indeterminate diastolic function. * Atypical septal motion consistent with paced rhythm. * LV systolic function visually appears moderately reduced. Aorta * Normally sized aortic root. Left Atrium * Moderate to severely dilated left atrium. Right Ventricle * RV size is not enlarged. Function appears normal. Aortic Valve * No aortic regurgitation. * Trileaflet aortic valve. * Normal aortic valve structure. * No aortic stenosis. Mitral Valve * No mitral regurgitation. * Normal structure. * No stenosis. Tricuspid Valve * Tricuspid valve not well visualized. * Trace tricuspid regurgitation. * Estimated RA pressure is 15 mmHg. Pulmonic Valve * Pulmonic valve is not well visualized. * No pulmonic stenosis. * Mild pulmonic regurgitation. Pulmonary Artery * Pulmonary artery not well visualized. Right Atrium * Normal right atrial size. Interatrial Septum * No evidence of PFO by color Doppler. IVC * The IVC is dilated. * < 50% respiratory change. Pericardium * There is a moderate to large circumferential pericardial effusion present. Device lead * A device lead was visualized in the right atrium and right ventricle. History History of CAD/PTCA Pacer/ICD Implant 08/16/2016 a Previous Echo was performed. Measurements: BP: 112/ 75 2D Normal Values RVIDd: 2.70 cm <2.7 cm IVSd: 1.30 cm 0.6 - 1.0 cm LVIDd: 3.60 cm 3.7 - 5.6 cm LVPWd: 1.30 cm 0.6 - 1.1 cm LVIDs: 2.90 cm 1.5 - 3.6 cm LA: 3.90 cm 2.0 - 4.0cm %FS: 19.40 cm >25 % LVOT Diam: 2.00 cm LA volume: 107 Mitral Valve Peak E:.71 m/sec Peak E' Lat Davide:3.51 cm/s Peak E' Med Davide:3.02 cm/s E/E' Lat Ratio:20.1 E/E' Med Ratio:23.4 Aortic Valve AI pressure Half-time: 375.00 msec Tricuspid Valve TV Regurg Peak Grad: 16.00mmHg TV Regurg Peak Davide: 2.02m/sec Updated by Zita Grant on 08/22/2016 11:40:57 AM electronically signed on 08/22/2016 11:57:43 AM with status of Final Wall Motion Ortiz: 1=Normal, 2=Hypokinesis, 3=Akinesis, 4=Dyskinesis, 5=Aneurysmal, 6=Hyperkinetic, X=Not Visualized (Blank)=Missing
--- NOTE | 2016-08-22 14:07 | Nephrology Progress Note ---
Date of Encounter: 08/22/16 Time of Encounter: 09:00 Objective - Vital Signs Vital signs: Vital Signs Temp Pulse Resp BP Pulse Ox 08/22/16 14:00 79 18 112/69 96 08/22/16 13:00 79 20 108/65 96 08/22/16 12:04 97.6 F 08/22/16 11:00 86 20 121/65 97 08/22/16 10:00 87 17 125/90 97 08/22/16 09:00 70 20 112/75 96 08/22/16 08:07 97.5 F L 08/22/16 08:00 72 08/22/16 07:00 69 20 92/76 96 08/22/16 06:30 93 16 127/72 95 08/22/16 06:00 95 20 101/65 100 08/22/16 05:30 75 18 95/63 94 08/22/16 05:00 79 20 85/74 95 08/22/16 04:38 97.8 F 08/22/16 04:30 86 20 100/60 94 08/22/16 04:00 113 16 122/59 93 08/22/16 03:30 66 24 109/65 97 08/22/16 03:00 92 20 99/71 92 08/22/16 02:45 88 16 98/75 97 08/22/16 02:30 84 20 84/67 95 08/22/16 02:15 84 22 92/59 96 08/22/16 02:00 97.8 F 91 24 106/64 98 08/22/16 01:45 91 18 107/62 95 08/22/16 01:30 90 20 108/63 94 08/22/16 01:15 108 18 99/68 95 08/22/16 01:00 134 16 79/52 94 08/22/16 00:45 133 18 115/84 95 08/22/16 00:30 92 16 81/63 95 08/22/16 00:15 92 14 95/69 98 08/22/16 00:00 112 18 93/58 90 08/21/16 23:50 87 75/57 08/21/16 23:40 96 72/27 08/21/16 23:30 77 97/43 08/21/16 23:20 101 86/60 08/21/16 23:10 88 18 70/47 08/21/16 23:00 102 20 77/60 95 08/21/16 22:42 97.5 F L 128 18 77/31 95 08/21/16 22:33 129 69/33 08/21/16 22:26 53 72/36 08/21/16 22:21 124 77/57 08/21/16 22:15 126 86/66 08/21/16 22:11 122 77/57 08/21/16 22:05 82 102/66 08/21/16 22:02 82 102/66 08/21/16 21:54 103 84/61 Intake and Output 08/21/16 08/22/16 08/22/16 23:59 07:59 15:59 Intake Total 1000 / 3350 1260 / 1260 1235.8 / 1235.8 Output Total 100 / 100 50 / 50 Balance 1000 / 3350 1160 / 1160 1185.8 / 1185.8 Intake: IV Fluids 1000 / 1000 1260 / 1260 1235.8 / 1235.8 0.9 % Sodium Chloride 1, 1000 / 1000 1000 / 1000 1000 / 1000 000 ML @ 3750 mls/hr IVC .Q16M ONE Rx#:[id number] Levophed 4 MG In Dextrose 50 / 50 235.8 / 235.8 5% 250 ML @ 2 MCG/MIN 7. 5 mls/hr IVC .CONT DREW Rx #:[id number] Calcium Gluconate 1,000 110 / 110 MG In Dextrose 5% 100 ML @ 220 mls/hr IVPB ONCE ONE Rx#:[id number] Maxipime 2,000 MG In 100 / 100 Dextrose 5% (Minibag+) 100 ML 100 ML @ 200 mls/ hr IVPB Q12HR DREW Rx#: [id number] Oral 0 / 0 Output: Urine 100 / 100 50 / 50 Other: Blood Glucose* 283 259 148 - Lab 08/22/16 00:55 08/22/16 03:57 Most recent lab results Calcium 8.0 mg/dL (8.6-10.8) L 08/22/16 03:57 Magnesium 2.0 mg/dL (1.6-2.6) 08/22/16 00:55 Consult Discharge Plan - Plan Referrals: Zarina Thacker MD [Primary Care Provider] -
--- NOTE | 2016-08-22 14:08 | Nephrology Consult Note ---
Date of Encounter: 08/22/16 Time of Encounter: 09:00 Assessment and Plan (1) Acute kidney injury Current Visit: Yes Status: Acute Oligouric ISRAEL Possible insult includes hypoperfusion possibly from new antihypertensives; contrast induced ISRAEL from recent CT, nephrotoxic exposure from vancomycin and NSAIDs. Losartan discontinued, which is appropriate with patient's hypotension and hyperK+. Will give second dose of kayexylate for hyperkalemia. Recommend renal diet that is low in potassium. Continue volume expansion with IVF, currently at 100mls/hr NS. Monitor BP. Avoid nephrotoxins; NSAIDs, Vancymycin. Complete renal US. Will repeat BMP and monitor BID for kidney function and electrolyte abnormalities. No need for acute dialysis at this time. (2) Proteinuria Current Visit: Yes Status: Acute With 100+ in the urine, likely 2/2 in the setting of ISRAEL. Doubt GN at this time, if kidney function worsens will consider work up for GN. Qualifiers: Proteinuria type: unspecified Qualified Code(s): R80.9 - Proteinuria, unspecified (3) Hyperkalemia Current Visit: Yes Status: Acute K+ 5 >6.1 >5.8 Losartan discontinued, which is appropriate with patient's hypotension and hyperK+. Will give second dose of kayexalate for hyperkalemia. Recommend renal diet that is low in potassium. (4) Hypotension Current Visit: Yes Status: Acute Management per primary team. On levaphed for pressure support. Recommend volume expansion in the setting of ISRAEL Concern for hypoperfusion as BP last week recorded as 174/84 at discharge vs 69/ 33 at this admission. Qualifiers: Hypotension type: postprocedural hypotension Qualified Code(s): I95.81 - Postprocedural hypotension (5) Metabolic acidosis Current Visit: Yes Status: Acute Management per primary service. Metabolic acidosis with lactic acidosis. Patient started on prophylactic antibiotic coverage and fluid resuscitation started in the ED.. Antibiotics stopped today by primary service, lactate trending down. (6) Sepsis Current Visit: Yes Status: Suspected Concern for sepsis with presentation of leuckocytosis, ISRAEL, hypotension requiring pressure support. Management per ICU service. Qualifiers: Sepsis type: sepsis due to unspecified organism Qualified Code(s): A41.9 - Sepsis, unspecified organism (7) Status post placement of cardiac pacemaker Current Visit: Yes Status: Acute (8) Chest pain Current Visit: Yes Status: Acute Cardiology consulted. Qualifiers: Chest pain type: unspecified Qualified Code(s): R07.9 - Chest pain, unspecified History of Present Illness - Reason for Consult Consult date: 08/22/16 Acute Kidney Injury, hyperkalemia, metabolic acidosis, proteinuria Requesting physician: Muna Vance - Chief Complaint Chest pain, dyspnea - History of Present Illness Mr. Navarro is a 80 year old male with PMH of hypertension and 2nd degree AV node block. He underwent pacemaker placement on 08/17 for 2nd degree AV block. Patient notes awaking in the middle of the night with chest pain and dyspnea. He was found to have new onset atrial flutter and given amiodarone, magnesium, and calcium cholride. The patient became hypotensive and was started on levophed after he failed to improve his pressure with fluid resuscitation. Nephrology consulted for concerns of ISRAEL with hyperkalemia, previously received one dose of kayexalate this AM at approx 2am. Patient denies any past issues concerning his kidney, denies kidney stones, NSAID use, tobacco or alcohol use. No family history of kidney disease or dialysis noted. Mr. Navarro is a very active man and denies any major medical events prior to pacer placement. Past Med Surg Social Fam HX - Past Medical History Attestation: Yes The following information was validated with the patient. Medical history: hypertension Psychiatric history: no psych history - Past Surgical History Surgical History: pacemaker - Social History Smoking Status: Never smoker Smokeless Tobacco Status: No Alcohol use: none Drug use: none - Family History Mother Living Status: Hx Family Cancer: Yes Father Living Status: Medications and Allergies Amlodipine [Norvasc] 10 mg PO DAILY #30 tablet 08/18/16 [Rx] Aspirin Enteric Coated [Aspirin EC] 81 mg PO DAILY #30 tablet. 08/18/16 [Rx] Losartan [Cozaar] 50 mg PO DAILY 30 Days 08/18/16 [Rx] Allergies No Known Allergies Allergy (Verified 08/16/16 10:16) Review of Systems Constitutional: fatigue Nose, mouth and throat: no dizziness Cardiovascular: chest pain, diaphoresis, dyspnea, edema Respiratory: dyspnea, dyspnea on exertion Gastrointestinal: no abdominal pain, no diarrhea Neurological: no confusion, no focal weakness, no numbness, no syncope, no tingling Exam - Vital Signs Vital signs: Initial Vital Signs Temp Pulse Resp BP Pulse Ox 98 F 60 22 123/78 97 08/21/16 14:17 08/21/16 14:17 08/21/16 14:17 08/21/16 14:17 08/21/16 14:17 Vital Signs - Last 8 Hours Temp Pulse Resp BP Pulse Ox 08/22/16 14:00 79 18 112/69 96 08/22/16 13:00 79 20 108/65 96 08/22/16 12:04 97.6 F 08/22/16 11:00 86 20 121/65 97 08/22/16 10:00 87 17 125/90 97 08/22/16 09:00 70 20 112/75 96 08/22/16 08:07 97.5 F L 08/22/16 08:00 72 08/22/16 07:00 69 20 92/76 96 08/22/16 06:30 93 16 127/72 95 Intake and Output 08/21/16 08/22/16 08/22/16 23:59 07:59 15:59 Intake Total 1000 / 3350 1260 / 1260 1235.8 / 1235.8 Output Total 100 / 100 50 / 50 Balance 1000 / 3350 1160 / 1160 1185.8 / 1185.8 Intake: IV Fluids 1000 / 1000 1260 / 1260 1235.8 / 1235.8 0.9 % Sodium Chloride 1, 1000 / 1000 1000 / 1000 1000 / 1000 000 ML @ 3750 mls/hr IVC .Q16M ONE Rx#:[id number] Levophed 4 MG In Dextrose 50 / 50 235.8 / 235.8 5% 250 ML @ 2 MCG/MIN 7. 5 mls/hr IVC .CONT DREW Rx #:[id number] Calcium Gluconate 1,000 110 / 110 MG In Dextrose 5% 100 ML @ 220 mls/hr IVPB ONCE ONE Rx#:[id number] Maxipime 2,000 MG In 100 / 100 Dextrose 5% (Minibag+) 100 ML 100 ML @ 200 mls/ hr IVPB Q12HR DREW Rx#: [id number] Oral 0 / 0 Output: Urine 100 / 100 50 / 50 Other: Blood Glucose* 283 259 148 - General Appearance General appearance: well-developed, well-nourished, appears started age EENT: ATNC, mucous membranes moist, hearing intact, vision intact Neck: supple Respiratory: clear Cardiology: irregular rhythm Gastrointestinal: normoactive bowel sounds, no tenderness, no guarding Integumentary: no rash Additional Comments: dorsalis pedal pulses 2+ bilaterally Neurologic: no focal deficit, alert and oriented x3 Musculoskeletal: no deformities, no erythema Psychiatric: mood/affect appropriate, cooperative Results - Lab Results 08/22/16 00:55 08/22/16 14:25 Most recent lab results Calcium 8.0 mg/dL (8.6-10.8) L 08/22/16 03:57 Magnesium 2.0 mg/dL (1.6-2.6) 08/22/16 00:55 Consult Discharge Plan - Plan Referrals: Zarina Thacker MD [Primary Care Provider] -
[2016-08-22] MEDS ORDERED: *HR* Phenylephrine 10 MG/ML VIAL ONE (14:27)
[2016-08-22] MEDS ORDERED: *HR* Rocuronium Bromide 50 MG/5 ML VIAL ONE (14:27)
[2016-08-22] MEDS ORDERED: *HR* Etomidate 20 MG/10 ML AMPUL IVP ONE (14:28)
[2016-08-22] MEDS ORDERED: *HR* Midazolam HCl 5 MG/5 ML VIAL IVP ONE (14:28)
[2016-08-22] MEDS ORDERED: *HR* FentaNYL (PF) 250 MCG/5 ML VIAL ONE (14:28)
--- NOTE | 2016-08-22 14:32 | Cardiothoracic Consult Note ---
Date of Encounter: 08/22/16 Time of Encounter: 14:29 Assessment and Plan (1) 2Nd degree AV block Current Visit: No Status: Acute The assessment and plan as outlined above was discussed with the patient and/or family members who expressed understanding and agreement. All questions were answered. The patient has a moderate to large pericardial effusion. He has been on and off pressors. His creatinine is increased. I discussed possible pericardial window with the patient. I would use a subxiphoid approach. If there was bleeding requiring a stitch, he would require a median sternotomy. Risks of surgery include , stroke, myocardial infarction, renal or respiratory failure, recurrent effusion and arrhythmia. The procedure, its risks, benefits and alternatives were explained and the patient and his family do wish to proceed. They have no questions. - History of Present Illness History of present illness: Mr. Navarro is a 80 year old male History of present illness. The patient is an 80-year-old gentleman who underwent a pacemaker placement 6 days ago. This was done for AV block. He awoke in the middle of the night with chest pain and shortness of breath. Echocardiogram done today reveals a moderate to large pericardial effusion and he is referred for pericardial window. Past medical history is notable for hypertension and pacemaker placement. Social history. He lives in [place]. Does not smoke and does not drink. Family history noncontributory. Review of systems is otherwise negative. Past Med Surg Social Fam HX - Past Medical History Medical history: hypertension Psychiatric history: no psych history - Past Surgical History Surgical History: pacemaker - Social History Smoking Status: Never smoker Smokeless Tobacco Status: No Alcohol use: none Drug use: none - Family History Mother Living Status: Hx Family Cancer: Yes Father Living Status: Medications and Allergies Amlodipine [Norvasc] 10 mg PO DAILY #30 tablet 08/18/16 [Rx] Aspirin Enteric Coated [Aspirin EC] 81 mg PO DAILY #30 tablet. 08/18/16 [Rx] Losartan [Cozaar] 50 mg PO DAILY 30 Days 08/18/16 [Rx] Allergies No Known Allergies Allergy (Verified 08/16/16 10:16) All Systems Review: A 10-system review of systems was performed and is negative for pertinent findings except as documented above in the HPI. Physical Examination Vital Signs, Last 4 Hours Temp Pulse Resp BP Pulse Ox 08/22/16 14:00 79 18 112/69 96 08/22/16 13:00 79 20 108/65 96 08/22/16 12:04 97.6 F 08/22/16 11:00 86 20 121/65 97 Pupils are equal, round and reactive to light and accommodation. He is edentulous. Neck is supple. Trachea in the midline. No thyromegaly or carotid bruits. Lungs are clear to percussion and auscultation. Heart is in an atrial flutter. Decreased heart tones. Mild JVD. Abdomen is benign. No tenderness, rebound or guarding. Extremities without edema. 1+ pulses. Cranial nerves, motor and sensory intact. He is awake, alert and oriented 3. Results 08/22/16 00:55 08/22/16 03:57 Lab Results, Last 24 hours 08/21/16 08/22/16 08/22/16 21:53 00:55 00:55 WBC 15.4 H Hgb 11.5 L Hct 35.8 L Plt Count 316 Sodium 136 Potassium 6.1 H D Chloride 108 Carbon Dioxide 18 L BUN 37 H Creatinine 2.06 H D Glucose 289 H Calcium 7.7 L D Magnesium 2.0 Troponin I 0.03 B-Natriuretic Peptide 08/22/16 08/22/16 08/22/16 00:55 00:55 03:57 WBC Hgb Hct Plt Count Sodium 139 Potassium 5.8 H Chloride 107 Carbon Dioxide 20 BUN 39 H Creatinine 2.31 H Glucose 293 H Calcium 8.0 L Magnesium Troponin I 0.03 B-Natriuretic Peptide 432 H Consult Discharge Plan - Plan Referrals: Zarina Thacker MD [Primary Care Provider] -
[2016-08-22] MEDS ORDERED: CeFAZolin Pre 2,000 MG/100 ML 2,000 MG/100 ML BAG IVPB ONE (14:37)
--- NOTE | 2016-08-22 14:42 | Anesthesia Evaluation PreOp ---
Date of Encounter: 08/22/16 Time of Encounter: 14:39 - Past History Planned Operation: pericardial window Cardiac History: HTN, Arrhythmia, Pacemaker/ICD (placed 5 days ago for AV block. 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 08/18/16 [Rx] Losartan [Cozaar] 50 mg PO DAILY 30 Days 08/18/16 [Rx] Allergies No Known Allergies Allergy (Verified 08/16/16 10:16) - Meds/Allergy Pre-op Review Medications Reviewed: Yes Allergies Reviewed: Yes Beta Blockers on Current Med List: No Anesthesia Results - Labs 08/22/16 00:55 08/22/16 03:57 - Imaging Additional studies: echo shows pericardial effusion Anesthesia Exam Selected Entries 08/22/16 12:04 08/22/16 14:00 Temperature 97.6 F Pulse Rate 79 Respiratory Rate 18 Blood Pressure 112/69 O2 Sat by Pulse Oximetry 96 Oxygen Flow Rate (LPM) 2 Height: 73in Weight: 195lbs NPO (# of Hours): 8 Pain Scale: 4 Pain Scale Used: Numeric (1 - 10) - HEENT Pupil (Motor): EOMI Mallampati: II Teeth: Missing - CHEESEMAKING LABORER LOC: Oriented CHEESEMAKING LABORER Motor: Normal RUE, Normal LUE, Normal RLE, Normal LLE, Normal Face CHEESEMAKING LABORER Sensory: Normal: RUE, LUE, RLE, LLE, Face - Cardiac Rhythm: Irregular (a-flutter) Murmur: None - Pulmonary Breath Sounds: bilateral Clear Respiratory Effort: Symmetrical Anesthesia Assess/Plan ASA Score: 4 Modified [place] Scale for Level of Consciousness: Cooperative, oriented, and tranquil Anesthetic Plan: General Monitoring Plan: Standard Monitors, A-Line Recovery Plan: ICU (Discussed risks of GA and a-line agrees to proceed.)
[2016-08-22 14:44] LABS: Calcium 8.1 mg/dL (8.6-10.8); Potassium 5.5 mEq/L (3.5-4.5)
[2016-08-22] MEDS ORDERED: Heparin 1,000 UNITS/500 mL NS 0 ML ONE (14:59)
[2016-08-22] MEDS ORDERED: Esmolol 100 MG/10 ML VIAL IVP ONE (15:45)
[2016-08-22] MEDS ORDERED: Naloxone 0.4 MG/ML INJ IVP PRN (16:16)
[2016-08-22] MEDS ORDERED: *HR* OxyCODONE/APAP 5/325 TABLET PO PRN (16:16)
--- NOTE | 2016-08-22 16:23 | Operative Note ---
Date of procedure: 08/22/16 Procedure in Detail: Preoperative diagnosis. Pericardial effusion. Postoperative diagnosis. Same. Procedures. Pericardial window with removal of 700 mL of nonclotting blood. Surgeon. Dr. Barry Beauchamp. Anesthesia. Dr. Benji Levy. The patient is an 80-year-old gentleman who underwent pacemaker placement 6 days ago. He was admitted with shortness of breath and chest pain. Echocardiogram revealed a moderate to large pericardial effusion and he was referred for drainage. He was brought to the operating room where he was prepped and draped in standard fashion. A standard incision was made over the xiphoid extending into the midline epigastrium. A small hole was made in the peritoneum during blunt dissection. Dissection continued up to the pericardium. This was opened with a # 15 blade. 700 mL of nonclotting bloody fluid were removed. We did not send this for any studies per the attending ambulatory care request. A finger was inserted. There were no adhesions and the fluid was entirely drained. There was no active bleeding. A single #32 right angle chest tube was inserted into the pericardial well. Fascia was closed with a #1 Vicryl. Subcutaneous tissues with a 2-0 Vicryl. Skin was closed with a 3-0 Vicryl subcuticular stitch. The wound was then dressed. We did attempt one cardioversion at 50 J, but the patient remained in an atrial flutter. The patient tolerated the procedure well and was returned to the intensive care unit in improved condition.
[2016-08-22] MEDS ORDERED: Dexmedetomidine HCl 400 MCG/100 ML MLS IVC ONE (16:27)
[2016-08-22] MEDS ORDERED: Dexmedetomidine HCl 400 MCG/100 ML MLS IVC SCH (16:30)
--- NOTE | 2016-08-22 16:54 | Electrocardiograph Report ---
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
--- NOTE | 2016-08-22 17:00 | Electrocardiograph Report ---
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
--- NOTE | 2016-08-22 17:01 | Electrocardiograph Report ---
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
[2016-08-22] MEDS ORDERED: *HR* FentaNYL (PF) 100 MCG/2 ML VIAL IVP ONE (17:05)
[2016-08-22] MEDS ORDERED: *HR* FentaNYL (PF) 100 MCG/2 ML VIAL ONE (17:09)
[2016-08-22] MEDS: Furosemide 40 MG/4 ML VIAL IVP SCH (17:12)
[2016-08-22] MEDS: *HR* FentaNYL (PF) 100 MCG/2 ML VIAL IVP PRN (19:01)
[2016-08-23] MEDS: ceFAZolin 2,000 MG in D5% in Water 100 ML IVPB SCH ×2 (00:36→07:59)
[2016-08-23] MEDS: *HR* FentaNYL (PF) 100 MCG/2 ML VIAL IVP PRN (01:41)
[2016-08-23 04:49] LABS: Basophils % 0.1 %; Hematocrit 32.8 % (37.5-50.1); Hemoglobin 10.6 g/dL (12.9-16.9); Immature Granulocytes % 1.4 % (0-4); Lymphocytes # 1.2 K/mcL (0.6-4.6); Mean Corpuscular HGB Conc 32.3 g/dL (31.6-35.5); Mean Corpuscular Hemoglobin 29.9 pg (28.0-33.3); Mean Corpuscular Volume 92.4 fL (83.0-100.0); Mean Platelet Volume 10.8 fL (9.4-12.4); Monocytes # 1.7 K/mcL (0.0-1.3); Monocytes % 8.3 %; Neutrophils # 16.8 K/mcL (1.6-8.9); Platelet Count 271 K/mcL (140-400); Red Blood Count 3.55 M/mcL (4.19-5.50); Segmented Neutrophils % 84.2 %
[2016-08-23 05:03] LABS: Calcium 7.9 mg/dL (8.6-10.8); Magnesium 1.8 mg/dL (1.6-2.6); Phosphorous 5.5 mg/dL (2.3-4.7)
[2016-08-23 05:04] LABS: Hemoglobin A1C 5.3 %; Potassium 4.3 mEq/L (3.5-4.5)
[2016-08-23] MEDS: Insulin LISPRO 300 UNITS/3 ML VIAL SQ SCH ×2 (06:42→11:30)
[2016-08-23] MEDS: Furosemide 40 MG/4 ML VIAL IVP SCH ×2 (07:59→17:41)
--- NOTE | 2016-08-23 08:12 | Pulmonology Progress Note ---
Date of Encounter: 08/23/16 Time of Encounter: 07:45 Assessment and Plan (1) Hypotension Current Visit: Yes Status: Acute Post op day #1 status post pericardial window for pericardial effusion with tamponade physiology. Cardiac defibrillator placed on 08/17/16 secondary to 2nd degree AV node block. Pressures improved. The patient is no longer on levophed. Maintenance fluids have been discontinued. Chest tube will need to remain in place at least one more day per cardiothoracic surgery. So far a total of 240ml has been drained. Current blood pressure 145/72. Evidence of volume overload with trace pedal edema. Started on Lasix 40mg BID yesterday afternoon. Qualifiers: Hypotension type: postprocedural hypotension Qualified Code(s): I95.81 - Postprocedural hypotension (2) Pericardial effusion with cardiac tamponade Current Visit: Yes Status: Acute Chest tube in place. See above. (3) Atrial flutter with rapid ventricular response Current Visit: Yes Status: Acute The patient is no longer having runs of tachycardia. Heart rate is regular. Cardiology following. Will continue to monitor. (4) Acute kidney injury Current Visit: Yes Status: Acute Creatinine remains elevated at 2.98 today. [place] most likely hemodynamically mediated secondary to hypotension with additional factors of injury secondary to contrast and vancomycin being given. Nephrology following. Blood pressures improved. Will continue to follow. Hyperkalemia has improved to 4.3 today. Avoid nephrotoxins. Repeat lactic acid 1.6 yesterday evening. (5) Hyperkalemia Current Visit: Yes Status: Acute Improved to 4.3 today. (6) DVT prophylaxis Current Visit: No Status: Acute Heparin SQ (7) Leukocytosis Current Visit: Yes Status: Acute Likely stress reaction. Patient's pressures are improving at this time, and no longer requiring levophed. No source of infection. Lactic acid has normalized. Continue to monitor. Qualifiers: Leukocytosis type: unspecified Qualified Code(s): D72.829 - Elevated white blood cell count, unspecified Subjective Principal diagnosis: Pericardial effusion Interval history: The patient was seen and examined. He was extubated this morning. He is currently saturating at 96% on 2L NC. He denies having any pain, but does state he is uncomfortable. He underwent pericardial window yesterday for his pericardial effusion. His blood pressure has since improved. Objective PUL Vital signs: Last Vital Signs Temp 97.4 F L 08/23/16 07:35 Pulse 60 08/23/16 08:00 Resp 16 08/23/16 08:00 BP 147/59 08/23/16 08:00 Pulse Ox 96 08/23/16 08:00 General appearance: no acute distress Eyes: nonicteric ENT: oropharynx moist Neck: supple Effort: normal Auscultation: bilateral: diminished breath sounds (at bases) Cardiovascular: regular rate and rhythm, other (subxiphoid chest tube in place) Gastrointestinal: normoactive bowel sounds, soft, non-distended Integumentary: other (bandaged surgical wound present subxiphoid midline. Clean and dry.) Extremities: no cyanosis, other (mild pedal edema present) Musculoskeletal: no deformities normal mental status, non-focal exam Ventilator Settings Ventilator Settings: Ventilator Settings, Last 8 Hours Ventilator Mode CPAP Ventilator Mode A/C Ventilator Mode A/C Ventilator Mode A/C Ventilator Mode A/C Ventilator Mode A/C Ventilator Mode A/C Ventilator Mode A/C Ventilator Mode A/C Ventilator Mode A/C Ventilator Tidal Volume 500 Setting Ventilator Tidal Volume 500 Setting Ventilator Tidal Volume 500 Setting Ventilator Tidal Volume 500 Setting Ventilator Tidal Volume 500 Setting Ventilator Tidal Volume 500 Setting Ventilator Tidal Volume 500 Setting Ventilator Tidal Volume 500 Setting Ventilator Tidal Volume 500 Setting Ventilator Respiratory Rate 12 Setting Ventilator Respiratory Rate 12 Setting Ventilator Respiratory Rate 12 Setting Ventilator Respiratory Rate 12 Setting Ventilator Respiratory Rate 12 Setting Ventilator Respiratory Rate 12 Setting Ventilator Respiratory Rate 12 Setting Ventilator Respiratory Rate 12 Setting Ventilator Respiratory Rate 12 Setting Actual Respiratory Rate 19 Actual Respiratory Rate 18 Actual Respiratory Rate 20 Actual Respiratory Rate 18 Actual Respiratory Rate 20 Actual Respiratory Rate 19 Actual Respiratory Rate 20 Actual Respiratory Rate 18 Actual Respiratory Rate 24 Actual Respiratory Rate 20 Positive End Expiratory 5 Pressure Positive End Expiratory 5 Pressure Positive End Expiratory 5 Pressure Positive End Expiratory 5 Pressure Positive End Expiratory 5 Pressure Positive End Expiratory 5 Pressure Positive End Expiratory 5 Pressure Positive End Expiratory 5 Pressure Positive End Expiratory 5 Pressure Positive End Expiratory 5 Pressure Peak Inspiratory Airway 20 Pressure Peak Inspiratory Airway 18 Pressure Peak Inspiratory Airway 18 Pressure Peak Inspiratory Airway 18 Pressure Peak Inspiratory Airway 25 Pressure Peak Inspiratory Airway 19 Pressure Peak Inspiratory Airway 20 Pressure Peak Inspiratory Airway 21 Pressure Peak Inspiratory Airway 18 Pressure Peak Inspiratory Airway 22 Pressure Results - Laboratory Findings CBC and BMP: 08/23/16 04:35 08/23/16 04:35 PT/INR, D-dimer PT 11.9 Seconds (9.4-12.1) 08/21/16 15:05 D-Dimer 980 ng/mLFEU (0-500) H 08/21/16 15:05 Abnormal lab findings: Abnormal lab results WBC 19.9 K/mcL (4.3-11.1) H 08/23/16 04:35 RBC 3.55 M/mcL (4.19-5.50) L 08/23/16 04:35 Hgb 10.6 g/dL (12.9-16.9) L 08/23/16 04:35 Hct 32.8 % (37.5-50.1) L 08/23/16 04:35 RDW 15.0 % (11.5-14.5) H 08/23/16 04:35 Neutrophils # 16.8 K/mcL (1.6-8.9) H 08/23/16 04:35 Monocytes # 1.7 K/mcL (0.0-1.3) H 08/23/16 04:35 D-Dimer 980 ng/mLFEU (0-500) H 08/21/16 15:05 Chloride 110 mEq/L (98-109) H 08/23/16 04:35 BUN 52 mg/dL (8-26) H 08/23/16 04:35 Creatinine 2.98 mg/dL (0.72-1.25) H 08/23/16 04:35 Est GFR ( Amer) 25 (> 60) L 08/23/16 04:35 Est GFR (Non-Af Amer) 20 (> 60) L 08/23/16 04:35 Glucose 115 mg/dL (70-99) H 08/23/16 04:35 POC Glucose 125 (58-89) H 08/22/16 23:28 Calculated Osmolality 307 (280-300) H 08/23/16 04:35 Calcium 7.9 mg/dL (8.6-10.8) L 08/23/16 04:35 Ionized Calcium 1.08 mmol/L (1.15-1.35) L 08/22/16 10:45 Phosphorus 5.5 mg/dL (2.3-4.7) H 08/23/16 04:35 C-Reactive Protein 74 mg/L (Less than 5) H 08/22/16 00:55 B-Natriuretic Peptide 432 pg/mL (0-100) H 08/22/16 00:55 Ur Specific [place] > 1.030 (1.010-1.025) H 08/22/16 02:13 Urine Protein 100 mg/dL (Neg-Trace) H 08/22/16 02:13 Urine Ketones Trace mg/dL (Negative) H 08/22/16 02:13 Urine Bilirubin Small (Negative) H 08/22/16 02:13 Ur Leukocyte Esterase Small (Negative) H 08/22/16 02:13 Urine Microscopic RBC 5-15 per hpf (0-3) H 08/22/16 02:13 Urine Microscopic WBC 5-15 per hpf (0-3) H 08/22/16 02:13 Ur Squamous Epith Cells Many per lpf (None-Few) H 08/22/16 02:13 Ur Culture Indicated? YES (NO) A 08/22/16 02:13 - Microbiology Findings Microbiology Findings: Microbiology, Last 48 Hours 08/22/16 02:13 Urine Culture - Final Urine,Clean Catch No growth. - Clinical Findings Intake & Output: Intake & Output 08/22/16 08/23/16 08/23/16 23:59 07:59 15:59 Intake Total 105 / 105 100 / 100 Output Total 1290 / 1290 350 / 350 Balance -1185 / -1185 -250 / -250 Weight 93.185 kg Consult Discharge Plan - Plan Referrals: Zarina Thacker MD [Primary Care Provider] - - Attending Attestation I examined this patient and my medical decision-making was reviewed with the PROCESS CONTROL TECH/PA/Advanced Practice Nurse/Resident Physician. I agree with the documented findings, disposition and treatment plan as described except to the extent set forth below.
--- NOTE | 2016-08-23 08:22 | Cardiothoracic Progress Note ---
Date of Encounter: 08/23/16 Time of Encounter: 08:20 - Assessment and plan (1) Pericardial effusion with cardiac tamponade Current Visit: Yes Status: Acute The patient is recovering well from his subxiphoid pericardial window for pericardial effusion with tamponade physiology. His drainage has decreased overnight, and currently he has 50 mL drainage in 8 hours. The chest tube will remain in place for at least another day. The patient's renal function is stable with the creatinine still elevated at 2.98. The assessment and plan as outlined above was discussed with the patient and/or family members who expressed understanding and agreement. All questions were answered. - Subjective Procedure(s) Performed: POD#1 S/P Subxiphoid pericardial window Interval history: The patient is resting comfortably in his hospital bed. He has no complaints. Vital Signs, Last 4 Hours Temp Pulse Resp BP Pulse Ox 08/23/16 08:00 60 16 147/59 96 08/23/16 07:40 60 08/23/16 07:35 97.4 F L 08/23/16 07:30 97.4 F L 08/23/16 07:00 60 20 147/72 96 08/23/16 06:10 18 98 08/23/16 06:00 60 20 139/61 97 08/23/16 05:00 60 18 137/73 97 08/23/16 04:53 98.3 F Oxgyen Flow Rate Oxygen Flow Rate (LPM) 2 Clinical Data, last 8 Hours Output, Chest Tube Drainage 0 Amount [Mediastinal #1] Output, Chest Tube Drainage 50 Amount [Mediastinal #1] Weight 08/21/16 08/22/16 08/23/16 23:59 23:59 23:59 Weight 93.185 kg - Physical Examination General: Conversant, No Apparent Distress Neck: No JVD, Normal carotid pulses Cardiac: Normal S1 and S2, No Murmur, Other (Irregular rate and rhythm (atrial flutter with variable rate).) Incision: No signs of infection, Dry/intact dressing Chest tubes: Minimal drainage, Other Lungs: Normal Breath Sounds (No air leak.), No Wheeze, Rales, Rhonchi Neuro: Alert and responsive, No focal deficits noted Vascular: Normal capillary refill Musculoskeletal: No Chest Wall Tenderness Extremities: No Clubbing, No Cyanosis, No Edema - Labs 08/23/16 04:35 08/23/16 04:35 Lab Results, Last 24 hours 08/22/16 08/23/16 08/23/16 14:25 04:35 04:35 WBC 19.9 H Hgb 10.6 L Hct 32.8 L Plt Count 271 Sodium 140 141 Potassium 5.5 H 4.3 D Chloride 110 H 110 H Carbon Dioxide 19 22 BUN 44 H 52 H Creatinine 3.12 H 2.98 H Glucose 152 H 115 H Calcium 8.1 L 7.9 L Magnesium 1.8 - Imaging Chest Xray: image reviewed (No pneumothorax. Bilateral airspace opacities, improving.) Consult Discharge Plan - Plan Referrals: Zarina Thacker MD [Primary Care Provider] -
--- NOTE | 2016-08-23 09:09 | Event Note ---
Date of Encounter: 08/23/16 Time of Encounter: 09:04 Patient examined, chart and all data reviewed as well as recent imaging studies. Based upon the evaluation performed yesterday, the patient was noted to have cardiac tamponade on and subsequently underwent pericardial window and drainage by Dr. Andrew Beauchamp. The patient was maintained on ventilatory support overnight following surgery given pulmonary edema and relatively high FiO2 requirement. This morning, the patient is tolerating spontaneous breathing trial and only requires low supplemental oxygen support as well as low PEEP to maintain adequate saturation values. The patient is hemodynamically stable urine output has improved. Examination elderly male orally intubated awake alert and appropriately interactive with caregivers. Vitals reviewed. Neck mild jugular venous distention note right IJ central venous catheter. Chest exam reduced breath sounds with crackles over the bases. No smallbore tube emanating from the subxiphoid region. Cardiac exam irregular rate and rhythm is noted. Abdominal exam soft bowel sounds are noted. Extremities were warm to touch mild edema over the lower extremities pulses intact. Neurologically the patient is completely intact. Impressions #1 acute respiratory failure with hypoxia secondary to mild pulmonary edema and hemodynamic instability (currently resolved following treatment of cardiac tamponade not). #2 cardiac tamponade not as the etiology of shock, resolved following pericardial window and appropriate drainage of the pericardial space #3 acute kidney injury secondary to hemodynamically mediated ATN, anticipate resolution over time #4 history of heart block necessitating pacemaker placement, currently note atrial fib flutter. Proceed with extubation. Continue to monitor renal function and urine output. Medical therapy for atrial fibrillation, at this time not a candidate for anticoagulation. E [place]asco [phone]
[2016-08-23] MEDS: Aspirin Enteric Coated 81 MG Tablet PO SCH (10:20)
--- NOTE | 2016-08-23 10:45 | Cardiology Progress Note ---
Date of Encounter: 08/23/16 Time of Encounter: 10:42 Assessment and Plan (1) Pericardial effusion with cardiac tamponade Current Visit: Yes Status: Acute S/p pericardial window for pericardial effusion and developing tamponade. CT intact and draining. CT surgery following. (2) New onset atrial flutter Current Visit: Yes Status: Acute New diagnosis atrial flutter. Currently rate controlled. Avg HR 60 bpm. Patient has ppm. Will add low dose bb. Occasional wide complex tachycardia. Reviewed with Dr. Haile, miesha with RVR and underlying BBB. No anticoagulation at this time d/t pericardial effusion s/p pericardial window. CT still in place. He is a CHADs VASc= 3 for HTN and age. Will re-evaluate once above issues resolved. (3) Status post placement of cardiac pacemaker Current Visit: Yes Status: Acute S/p PPM for second degree type I AV block. Device check showed normal functioning device. Atrial arrhythmia ongoing since 08/19/16. Discussion w patient/family: The assessment and plan as outlined above was discussed with the patient and/or family members who expressed understanding and agreement. All questions were answered. Thank you for involving us in the care of your patient. Please call with any questions. Subjective Principal diagnosis: Pericardial effusion Interval history: Pt resting comfortably in bed. Extubated after surgery yesterday. Denies chest pain. CT intact. Objective Vital Signs, Last 4 Hours Temp Pulse Resp BP Pulse Ox 08/23/16 10:00 60 16 140/70 95 08/23/16 09:00 60 18 145/72 94 08/23/16 08:00 60 16 147/59 96 08/23/16 07:40 60 08/23/16 07:35 97.4 F L 08/23/16 07:30 97.4 F L 20 94 08/23/16 07:00 60 20 147/72 96 General: Conversant, No Apparent Distress HEENT: Atraumatic, Normocephaly, Mucus Membranes Moist Neck: No JVD, Normal carotid pulses Cardiac: Other (irregularly irregular, chest tube draining) Lungs: Normal Breath Sounds, No Wheeze, Rales, Rhonchi, Other Neuro: Alert and responsive, No focal deficits noted Abdomen: Soft Skin: No rashes noted on visualized skin Musculoskeletal: No Chest Wall Tenderness Extremities: No Clubbing, No Cyanosis, Normal Pulses, Other (trace ankle edema) Results 08/23/16 04:35 08/23/16 04:35 Lab Results 08/22/16 08/23/16 08/23/16 14:25 04:35 04:35 WBC 19.9 H Hgb 10.6 L Hct 32.8 L Plt Count 271 Sodium 140 141 Potassium 5.5 H 4.3 D Chloride 110 H 110 H Carbon Dioxide 19 22 BUN 44 H 52 H Creatinine 3.12 H 2.98 H Glucose 152 H 115 H Calcium 8.1 L 7.9 L Magnesium 1.8 - EKG Interpretation EKG results cardiology: other (Telemetry review shows rate controlled atrial flutter.) Consult Discharge Plan - Plan Referrals: Zarina Thacker MD [Primary Care Provider] -
--- NOTE | 2016-08-23 11:10 | Nephrology Progress Note ---
Date of Encounter: 08/23/16 Time of Encounter: 09:00 - Assessment and Plan (1) Acute kidney injury Current Visit: Yes Status: Acute Initially presented with oligouric ISRAEL, UOP improving with 750ml this AM. Cr improved from 3.12 >2.98 Possible insults include hypoperfusion from new antihypertensives; contrast induced ISRAEL from recent CT, nephrotoxic exposure from vancomycin and NSAIDs. Patient was found to have pericardial effusion with early tamponade; s/p cardiac window. This may have contributed to hypoperfusion. Losartan discontinued Recommend renal diet that is low in potassium. Monitor BP. Avoid nephrotoxins; NSAIDs, Vancymycin. Complete renal US. Will repeat BMP and monitor BID for kidney function and electrolyte abnormalities. No need for acute dialysis at this time. (2) Proteinuria Current Visit: Yes Status: Acute With 100+ in the urine, likely 2/2 in the setting of ISRAEL. Doubt GN at this time with Cr improving. Qualifiers: Proteinuria type: unspecified Qualified Code(s): R80.9 - Proteinuria, unspecified (3) Hyperkalemia Current Visit: Yes Status: Resolved Improved. K+ 6.0 > 4.3. Patient received two dose (75gm total of kayexalate yesterday). (4) Pericardial effusion with cardiac tamponade Current Visit: Yes Status: Acute S/p pericardial window for pericardial effusion and developing tamponade. Chest tube intact and draining. CT surgery following. (5) Hypotension Current Visit: Yes Status: Resolved Resolved. See above plan. Qualifiers: Hypotension type: postprocedural hypotension Qualified Code(s): I95.81 - Postprocedural hypotension (6) Metabolic acidosis Current Visit: Yes Status: Resolved Improvement with lactic acid 4.6 >1.6. (7) Leukocytosis Current Visit: Yes Status: Acute Stress reaction vs infectious source. WBC cont to rise, today at 19.9. Management per primary service. Qualifiers: Leukocytosis type: unspecified Qualified Code(s): D72.829 - Elevated white blood cell count, unspecified (8) Atrial flutter with rapid ventricular response Current Visit: Yes Status: Acute Cardiology consulted. Goal of rate control, but want to watch BPs closely to prevent hypoperfusion to kidneys. 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 Atrial arrhythmia ongoing since . Subjective Principal diagnosis: Pericardial effusion Interval history: Patient underwent pericardial window yesterday. Patient seen and examined at bedside; patient's and daughter also at beside. Patient sleepy on exam but easily arousable, denies any complaints. Family notes that he is doing better today. Objective - Vital Signs Vital signs: Vital Signs Temp Pulse Resp BP Pulse Ox 08/23/16 10:00 60 16 140/70 95 08/23/16 09:00 60 18 145/72 94 08/23/16 08:00 60 16 147/59 96 08/23/16 07:40 60 08/23/16 07:35 97.4 F L 08/23/16 07:30 97.4 F L 20 94 08/23/16 07:00 60 20 147/72 96 08/23/16 06:10 18 98 08/23/16 06:00 60 20 139/61 97 08/23/16 05:00 60 18 137/73 97 08/23/16 04:53 98.3 F 08/23/16 04:04 19 96 08/23/16 04:00 60 19 143/74 96 08/23/16 03:00 60 20 116/66 94 08/23/16 02:00 60 18 148/63 95 08/23/16 01:46 24 146/63 95 08/23/16 01:00 60 20 106/58 94 08/23/16 00:00 98.5 F 60 19 112/46 93 08/22/16 23:58 18 93 08/22/16 23:00 60 18 101/47 94 08/22/16 22:00 60 17 135/58 95 08/22/16 21:26 17 94 08/22/16 21:00 63 17 104/52 94 08/22/16 20:00 60 19 152/83 92 08/22/16 19:50 98.5 F 08/22/16 19:00 62 18 121/67 92 08/22/16 18:00 89 19 115/60 92 08/22/16 17:29 96.4 F L 84 22 204/83 91 08/22/16 17:15 21 162/60 90 08/22/16 17:00 78 20 140/58 92 08/22/16 16:58 87 22 137/59 92 04/25/17 16:43 67 24 173/70 91 08/22/16 16:28 87 26 204/83 98 08/22/16 16:13 96.4 F L 102 27 204/83 90 08/22/16 15:00 82 08/22/16 14:00 79 18 112/69 96 08/22/16 13:00 79 20 108/65 96 08/22/16 12:04 97.6 F Intake and Output 08/22/16 08/23/16 08/23/16 23:59 07:59 15:59 Intake Total 105 / 105 100 / 100 76 / 76 Output Total 1290 / 1290 350 / 350 450 / 450 Balance -1185 / -1185 -250 / -250 -374 / -374 Intake: IV Fluids 105 / 105 100 / 100 76 / 76 0.9 % Sodium Chloride 1, 100 / 100 000 ML @ 100 mls/hr IVC . Q10H DREW Rx#:[id number] PRECEDEX 400 mcg In 100 4 / 4 ml @ 0.2 MCG/KG/HR 4.425 mls/hr IVC .[id number] DREW Rx#:[id number] Diprivan 1,000 mg In 100 1 / 1 76 / 76 ml @ 5 MCG/KG/MIN 2.655 mls/hr IVC .Q24H DREW Rx#: [id number] Ancef 2,000 MG In 100 / 100 Dextrose 5% 100 ML @ 200 mls/hr IVPB Q8HR DREW Rx#: [id number] Output: Catheter 400 / 400 300 / 300 450 / 450 Wound Drainage 700 / 700 Chest Tube Drainage 190 / 190 50 / 50 Mediastinal #1 190 / 190 50 / 50 Other: Weight 93.185 kg Blood Glucose* 162 120 Patient Weight 08/23/16 23:59 Weight 93.185 kg - General Appearance General appearance: Present: well-developed, well-nourished, appears started age EENT: Present: ATNC, mucous membranes dry, hearing intact, vision intact Neck: Present: supple Respiratory: Present: clear Cardiology: Present: irregular rhythm Additional Comments: chest tube present Integumentary: Present: no rash, warm and dry Neurologic: Present: no focal deficit Additional Comments: awake and alert Musculoskeletal: Present: no deformities, no erythema, no cyanosis Psychiatric: Present: mood/affect appropriate, cooperative - Lab 08/23/16 04:35 08/23/16 04:35 Most recent lab results Calcium 7.9 mg/dL (8.6-10.8) L 08/23/16 04:35 Phosphorus 5.5 mg/dL (2.3-4.7) H 08/23/16 04:35 Magnesium 1.8 mg/dL (1.6-2.6) 08/23/16 04:35 Consult Discharge Plan - Plan Referrals: Zarina Thacker MD [Primary Care Provider] -
--- NOTE | 2016-08-23 17:56 | Electrocardiograph Report ---
[address] [place], [place] [address] Test Date: 2016-08-21 Pat Name: Sean Navarro Department: 110 Room: 01 Gender: M [employer]: NABIL : 1935 Requested By: Sophia Steiner Order Number: [id number] Reading MD: Francisco Snowden MD Measurements Intervals Marshall Rate: 112 P: 119 NE: 195 QRS: 8 QRSD: 144 T: 230 QT: 360 QTc: 427 Interpretive Statements UNCERTAIN IRREGULAR RHYTHM LIKELY ATRIAL FLUTTER WITHT VARIABLE CONDUCTION AND DEMAND ELECTRONIC VENTRICULAR PACEMAKER LEFT BUNDLE BRANCH BLOCK Electronically Signed On 08-23-2016 17:54:44 EDT by Francisco Snowden MD
[2016-08-24 05:57] LABS: Calcium 7.8 mg/dL (8.6-10.8); Magnesium 1.6 mg/dL (1.6-2.6); Phosphorous 4.4 mg/dL (2.3-4.7); Potassium 3.7 mEq/L (3.5-4.5)
[2016-08-24 06:00] LABS: Basophils % 0.1 %; Hematocrit 29.9 % (37.5-50.1); Lymphocytes % 6.5 %; Mean Corpuscular HGB Conc 33.4 g/dL (31.6-35.5); Mean Corpuscular Hemoglobin 30.5 pg (28.0-33.3); Mean Corpuscular Volume 91.2 fL (83.0-100.0); Mean Platelet Volume 11.4 fL (9.4-12.4); Monocytes # 1.5 K/mcL (0.0-1.3); Monocytes % 9.4 %; Neutrophils # 12.8 K/mcL (1.6-8.9); Platelet Count 264 K/mcL (140-400); Red Blood Count 3.28 M/mcL (4.19-5.50); Red Cell Distribution Width 14.6 % (11.5-14.5)
[2016-08-24] MEDS: Aspirin Enteric Coated 81 MG Tablet PO SCH (08:13)
[2016-08-24] MEDS: Furosemide 40 MG/4 ML VIAL IVP SCH (08:13)
--- NOTE | 2016-08-24 08:34 | Cardiothoracic Progress Note ---
Date of Encounter: 08/24/16 Time of Encounter: 08:31 - Assessment and plan (1) 2Nd degree AV block Current Visit: No Status: Acute The chest tube was removed. The patient is okay from my standpoint to start oral anticoagulants. His renal function continues to improve. He is okay for discharge from my standpoint when he is medically stable. I need to see him in the office 4 weeks after discharge for a check. - Subjective Interval history: The patient feels better and has no complaints. Vital Signs, Last 4 Hours Temp Pulse Resp BP Pulse Ox 08/24/16 08:00 60 14 144/69 93 08/24/16 07:09 98.3 F 08/24/16 07:00 60 16 145/72 93 08/24/16 06:00 60 16 144/74 93 08/24/16 05:00 60 18 134/68 93 Oxgyen Flow Rate Oxygen Flow Rate (LPM) 2 Clinical Data, last 8 Hours Output, Chest Tube Drainage 0 Amount [Mediastinal #1] Output, Chest Tube Drainage 20 Amount [Mediastinal #1] Weight 08/22/16 08/23/16 08/24/16 23:59 23:59 23:59 Weight 93.185 kg 92 kg Lungs are clear to percussion and auscultation. Heart is in an atrial flutter with a paced rate. His incision is healing well without signs of infection. Chest tube drainage is minimal. - Labs 08/24/16 05:30 08/24/16 05:30 Lab Results, Last 24 hours 08/24/16 08/24/16 05:30 05:30 WBC 15.5 H Hgb 10.0 L Hct 29.9 L Plt Count 264 Sodium 144 Potassium 3.7 Chloride 108 Carbon Dioxide 26 BUN 61 H Creatinine 2.51 H Glucose 118 H Calcium 7.8 L Magnesium 1.6 Consult Discharge Plan - Plan Referrals: Zarina Thacker MD [Primary Care Provider] -
--- NOTE | 2016-08-24 08:47 | Pulmonology Progress Note ---
Date of Encounter: 08/24/16 Time of Encounter: 08:25 Assessment and Plan (1) Pericardial effusion with cardiac tamponade Current Visit: Yes Status: Resolved Post op day #2 status post pericardial window for pericardial effusion with tamponade physiology. Chest tube removed 08/24 Cardiac defibrillator placed on 08/17/16 secondary to 2nd degree AV node block. Pressures improved. Current blood pressure 144/74. Volume overload has improved. Plan to transfer out of the ICU today. (2) Atrial flutter with rapid ventricular response Current Visit: Yes Status: Resolved Currently paced rhythm at 60bpm. CHADS VASc score of 3. Will begin anticoagulation. Family members in the room request starting Xarelto. Cleared by cardiothoracic surgery to start anticoagulation at this time. (3) Acute kidney injury Current Visit: Yes Status: Acute Improving 2.98 > 2.51. ISRAEL most likely hemodynamically mediated secondary to hypotension with additional factors of injury secondary to contrast and vancomycin being given. Nephrology following. Blood pressures improved. Will continue to follow. Avoid nephrotoxins. (4) DVT prophylaxis Current Visit: No Status: Acute Patient started on Xarelto today. (5) Leukocytosis Current Visit: Yes Status: Acute Improving. 19.9 > 15.5 Likely stress reaction. No source of infection. Lactic acid has normalized. Continue to monitor. Qualifiers: Leukocytosis type: unspecified Qualified Code(s): D72.829 - Elevated white blood cell count, unspecified (6) Acute urinary retention Current Visit: Yes Status: Acute Patient required recatheterization last night with 1.2L out after placement. Started Flomax today. Subjective Principal diagnosis: Pericardial effusion Interval history: The patient was seen and examined. Overnight he had some urinary retention after his catheter had been removed. Nursing reports that upon replacement of his catheter there was 1200mL out. His chest tube was removed this morning. Blood pressure continue to be stable. He states he feels better today than he has in several weeks. Objective PUL Vital signs: Last Vital Signs Temp 98.3 F 08/24/16 07:09 Pulse 60 08/24/16 08:00 Resp 14 08/24/16 08:00 BP 144/69 08/24/16 08:00 Pulse Ox 93 08/24/16 08:00 General appearance: no acute distress, alert Eyes: nonicteric ENT: oropharynx moist Neck: supple Effort: normal Auscultation: bilateral: diminished breath sounds (minimally) Cardiovascular: regular rate and rhythm, other (paced rhythm on monitor) Gastrointestinal: normoactive bowel sounds, soft, non-tender, non-distended Integumentary: normal, other (Midline incision from pericardial window is clean and dry. Drain removed and bandage was placed with several 4x4s) Extremities: no cyanosis Musculoskeletal: no deformities normal mental status, non-focal exam mood appropriate Results - Laboratory Findings CBC and BMP: 08/24/16 05:30 08/24/16 05:30 PT/INR, D-dimer PT 11.9 Seconds (9.4-12.1) 08/21/16 15:05 D-Dimer 980 ng/mLFEU (0-500) H 08/21/16 15:05 Abnormal lab findings: Abnormal lab results WBC 15.5 K/mcL (4.3-11.1) H 08/24/16 05:30 RBC 3.28 M/mcL (4.19-5.50) L 08/24/16 05:30 Hgb 10.0 g/dL (12.9-16.9) L 08/24/16 05:30 Hct 29.9 % (37.5-50.1) L 08/24/16 05:30 RDW 14.6 % (11.5-14.5) H 08/24/16 05:30 Neutrophils # 12.8 K/mcL (1.6-8.9) H 08/24/16 05:30 Monocytes # 1.5 K/mcL (0.0-1.3) H 08/24/16 05:30 D-Dimer 980 ng/mLFEU (0-500) H 08/21/16 15:05 BUN 61 mg/dL (8-26) H 08/24/16 05:30 Creatinine 2.51 mg/dL (0.72-1.25) H 08/24/16 05:30 Est GFR ( Amer) 30 (> 60) L 08/24/16 05:30 Est GFR (Non-Af Amer) 25 (> 60) L 08/24/16 05:30 Glucose 118 mg/dL (70-99) H 08/24/16 05:30 POC Glucose 121 (58-89) H 08/23/16 11:13 Calculated Osmolality 316 (280-300) H 08/24/16 05:30 Calcium 7.8 mg/dL (8.6-10.8) L 08/24/16 05:30 Ionized Calcium 1.08 mmol/L (1.15-1.35) L 08/22/16 10:45 C-Reactive Protein 74 mg/L (Less than 5) H 08/22/16 00:55 B-Natriuretic Peptide 432 pg/mL (0-100) H 08/22/16 00:55 25-OH Vitamin D Total 23 ng/mL (30-80) L 08/22/16 10:45 Ur Specific [place] > 1.030 (1.010-1.025) H 08/22/16 02:13 Urine Protein 100 mg/dL (Neg-Trace) H 08/22/16 02:13 Urine Ketones Trace mg/dL (Negative) H 08/22/16 02:13 Urine Bilirubin Small (Negative) H 08/22/16 02:13 Ur Leukocyte Esterase Small (Negative) H 08/22/16 02:13 Urine Microscopic RBC 5-15 per hpf (0-3) H 08/22/16 02:13 Urine Microscopic WBC 5-15 per hpf (0-3) H 08/22/16 02:13 Ur Squamous Epith Cells Many per lpf (None-Few) H 08/22/16 02:13 Ur Culture Indicated? YES (NO) A 08/22/16 02:13 - Microbiology Findings Microbiology Findings: Microbiology, Last 48 Hours 08/22/16 02:13 Urine Culture - Final Urine,Clean Catch No growth. - Clinical Findings Intake & Output: Intake & Output 08/23/16 08/24/16 08/24/16 23:59 07:59 15:59 Intake Total 540 / 540 Output Total 610 / 610 1420 / 1420 Balance -70 / -70 -1420 / -1420 Weight 92 kg Consult Discharge Plan - Plan Referrals: Zarina Thacker MD [Primary Care Provider] -
--- NOTE | 2016-08-24 11:33 | Nephrology Progress Note ---
Date of Encounter: 08/24/16 Time of Encounter: 08:15 - Assessment and Plan (1) Acute kidney injury Current Visit: Yes Status: Acute Initially presented with oligouric ISRAEL, UOP has been improving, but patient needed replacement of upton due to difficulty with urination. SCr has continued to improve as well and is currently continuing to trend downward at 2.51. Possible insults include hypoperfusion from new antihypertensives; contrast induced ISRAEL from recent CT, nephrotoxic exposure from vancomycin and NSAIDs, or decreased renal perfusion fpr decreased CO with recent cardiac tamponade. Renal function has continued to improve, though not back to baseline, after placement of pericardial window. Losartan: Patient's daughter states that he had not started taking this medication at home even though it was prescribed. Recommend stopping this medication due to patient hyperkalemia at presentation Recommend renal diet that is low in potassium Continue frequent vital checks Avoid nephrotoxins; NSAIDs, Vancymycin. Complete renal US Will repeat BMP and monitor BID for kidney function and electrolyte abnormalities, though he has so far had continued improvement No need for acute dialysis at this time (2) Proteinuria Current Visit: Yes Status: Acute With 100+ in the urine, likely secondary to ISRAEL. Doubt GN at this time with SCr continuing to improve Qualifiers: Proteinuria type: unspecified Qualified Code(s): R80.9 - Proteinuria, unspecified (3) Hyperkalemia Current Visit: Yes Status: Resolved Improved. Potassium down to 3.7 today. Improvement in potassium seen with increased renal perfusion as a result of resolution of patient cardiac tamponade. Previously required kayexelate. Will continue to watch with daily chemistry (4) Pericardial effusion with cardiac tamponade Current Visit: Yes Status: Resolved S/p pericardial window for pericardial effusion and developing tamponade. Chest tube removed this morning CT surgery following (5) Metabolic acidosis Current Visit: Yes Status: Resolved Improved (6) Leukocytosis Current Visit: Yes Status: Acute Stress reaction vs infectious source Stable, WBC down to 15.5 today Management per primary service. Qualifiers: Leukocytosis type: unspecified Qualified Code(s): D72.829 - Elevated white blood cell count, unspecified (7) New onset atrial flutter Current Visit: Yes Status: Acute Cardiology is following, appreciate recommendations Goal of rate control, but want to watch BPs closely to prevent hypoperfusion to kidneys. 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 Atrial arrhythmia ongoing since . Subjective Principal diagnosis: Pericardial effusion Interval history: Patient states that he is doing well, and that he feels better now than he has in a week. He states that his appetite s returning a little and reports eating some breakfast this morning. He states that the upton was removed yesterday, but had to be put back in because he wasn't able to urinate, but he has continued to have good urine output. Objective - Vital Signs Vital signs: Vital Signs Temp Pulse Resp BP Pulse Ox 08/24/16 11:00 60 14 139/69 95 08/24/16 10:00 60 16 129/65 93 08/24/16 09:00 60 16 146/84 93 08/24/16 08:00 60 14 144/69 93 08/24/16 07:30 60 08/24/16 07:09 98.3 F 08/24/16 07:00 60 16 145/72 93 08/24/16 06:00 60 16 144/74 93 08/24/16 05:00 60 18 134/68 93 08/24/16 04:00 60 13 122/64 94 08/24/16 03:00 98.6 F 60 16 135/69 93 08/24/16 02:00 60 22 174/86 94 08/24/16 01:00 60 17 183/87 93 08/24/16 00:06 98.6 F 08/24/16 00:00 98.6 F 60 12 156/70 97 08/23/16 23:00 60 21 180/82 95 08/23/16 22:00 60 18 154/73 93 08/23/16 21:00 60 22 152/66 95 08/23/16 20:00 60 16 148/65 93 08/23/16 19:00 99.8 F H 60 16 146/68 93 08/23/16 17:50 60 16 149/65 94 08/23/16 17:00 60 14 138/67 96 08/23/16 16:00 60 18 154/79 94 08/23/16 15:30 99.4 F 08/23/16 15:00 60 08/23/16 14:00 60 18 149/86 95 08/23/16 13:00 60 18 138/68 94 08/23/16 12:00 60 14 142/69 93 Intake and Output 08/23/16 08/24/16 08/24/16 23:59 07:59 15:59 Intake Total 540 / 540 240 / 240 Output Total 610 / 610 1420 / 1420 Balance -70 / -70 -1420 / -1420 240 / 240 Intake: Oral 540 / 540 240 / 240 Output: Urine 550 / 550 Catheter 1400 / 1400 Chest Tube Drainage 60 / 60 20 / 20 Mediastinal #1 60 / 60 20 20 Other: Meal Dinner Breakfast Percent of Meal Consumed 50% 50% Stool Size Smear Stool Consistency soft Stool Characteristics Normal for Patient Stool Color Brown # Bowel Movements 1 Weight 92 kg Patient Weight 08/24/16 23:59 Weight 92 kg - General Appearance General appearance: Present: well-developed, well-nourished, appears started age EENT: Present: ATNC, mucous membranes moist Respiratory: Present: clear. Absent: wheezing, rales, rhonchi Cardiology: Present: no murmurs, no rub, no gallops, no edema, regular rate, regular rhythm, normal S1, normal S2 Gastrointestinal: Present: normoactive bowel sounds, no tenderness Integumentary: Present: warm and dry Neurologic: Present: no focal deficit, no asterixis, alert and oriented x3 Musculoskeletal: Present: no deformities, no erythema, no cyanosis, no clubbing Psychiatric: Present: mood/affect appropriate, cooperative - Lab 08/24/16 05:30 08/24/16 05:30 Most recent lab results Calcium 7.8 mg/dL (8.6-10.8) L 08/24/16 05:30 Phosphorus 4.4 mg/dL (2.3-4.7) 08/24/16 05:30 Magnesium 1.6 mg/dL (1.6-2.6) 08/24/16 05:30 Consult Discharge Plan - Plan Referrals: Zarina Thacker MD [Primary Care Provider] -
[2016-08-24] MEDS ORDERED: Norepinephrine 4 MG in D5% in Water 250 ML IVC SCH (12:41)
[2016-08-24] MEDS ORDERED: *HR* OxyCODONE/APAP 5/325 TABLET PO PRN (12:41)
[2016-08-24] MEDS ORDERED: Naloxone 0.4 MG/ML INJ IVP PRN (12:41)
[2016-08-24] MEDS ORDERED: Nitroglycerin 0.4 MG TAB.SUBL SL PRN (12:41)
[2016-08-24] MEDS ORDERED: *HR* Rivaroxaban 15 MG TABLET PO SCH ×2 (17:00)
[2016-08-25 06:40] LABS: Calcium 7.9 mg/dL (8.6-10.8)
[2016-08-25 08:24] LABS: Basophils % 0.2 %; Eosinophils % 0.3 %; Hematocrit 31.1 % (37.5-50.1); Hemoglobin 10.3 g/dL (12.9-16.9); Immature Granulocytes % 0.7 % (0-4); Lymphocytes # 1.5 K/mcL (0.6-4.6); Lymphocytes % 11.5 %; Mean Corpuscular HGB Conc 33.1 g/dL (31.6-35.5); Mean Corpuscular Hemoglobin 30.4 pg (28.0-33.3); Mean Corpuscular Volume 91.7 fL (83.0-100.0); Mean Platelet Volume 11.1 fL (9.4-12.4); Monocytes # 1.3 K/mcL (0.0-1.3); Monocytes % 10.5 %; Neutrophils # 9.7 K/mcL (1.6-8.9); Platelet Count 292 K/mcL (140-400); Red Blood Count 3.39 M/mcL (4.19-5.50); Red Cell Distribution Width 14.6 % (11.5-14.5); Segmented Neutrophils % 76.8 %
[2016-08-25] MEDS ORDERED: Aspirin Enteric Coated 81 MG Tablet PO SCH (09:00)
[2016-08-25] MEDS ORDERED: *HR* OxyCODONE/APAP 5/325 TABLET PO PRN (11:54)
[2016-08-25 12:00] VITALS: BP 150/66
--- NOTE | 2016-08-25 12:15 | Nephrology Progress Note ---
Date of Encounter: 08/25/16 Time of Encounter: 09:00 - Assessment and Plan (1) Acute kidney injury Current Visit: Yes Status: Acute Initially presented with oligouric ISRAEL, UOP continues to improve. Cr improved from peak of 3.12 to 1.83 today. Baseline Cr appears to be around 1.0-1.2. Likely secondary to hypoperfusion. Hypotensive on arrival, found to have pericardial effusion with early tamponade; s/p cardiac window. Recommend renal diet. Monitor BP. Avoid nephrotoxins; NSAIDs, Vancomycin. Losartan: Patient's daughter states that he had not started taking this medication at home even though it was prescribed. Recommend discontinuing this as a home medication due to patient hyperkalemia at presentation (2) Proteinuria Current Visit: Yes Status: Acute With 100+ in the urine, likely 2/2 in the setting of ISRAEL. Doubt GN at this time with Cr improving. Qualifiers: Proteinuria type: unspecified Qualified Code(s): R80.9 - Proteinuria, unspecified (3) Hypokalemia Current Visit: Yes Status: Acute Patient presented with hyperkalemia with K+ max 6.0. Patient received 45gm kayexalate tota. Improvement in potassium seen with increased renal perfusion as a result of resolution of patient cardiac tamponade. Potassium down to 3.0 today. Oral K+ replacement this AM with 40meq. Patient denies any chest pain, cramping. Will continue to monitor electrolytes. (4) Pericardial effusion with cardiac tamponade Current Visit: Yes Status: Resolved S/p pericardial window for pericardial effusion and developing tamponade. Chest tube removed yesterday CT surgery following. (5) Hypotension Current Visit: Yes Status: Resolved Resolved. See above plan. Qualifiers: Hypotension type: postprocedural hypotension Qualified Code(s): I95.81 - Postprocedural hypotension (6) Metabolic acidosis Current Visit: Yes Status: Resolved Improved lactic acid 4.6 >1.6 on 08/22/16 . (7) Leukocytosis Current Visit: Yes Status: Acute Stress reaction vs infectious source. WBC improved from max of 19.9 to 12.6 today. Management per primary service. Qualifiers: Leukocytosis type: unspecified Qualified Code(s): D72.829 - Elevated white blood cell count, unspecified (8) Atrial flutter with rapid ventricular response Current Visit: Yes Status: Resolved Cardiology signed off Rate controlled, cautious of BPs to prevent hypoperfusion to kidneys. 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 Atrial arrhythmia ongoing since . Subjective Principal diagnosis: Pericardial effusion Interval history: Patient seen and examined at bedside; patient's and daughter also at beside. Patient denies any complaints, states he feels better overall and is urinating better today. Objective - Vital Signs Vital signs: Vital Signs Temp Pulse Resp BP Pulse Ox 08/25/16 11:59 98.3 F 60 16 150/66 92 08/25/16 08:57 91 08/25/16 08:47 98.3 F 60 18 171/54 91 08/25/16 05:41 98.1 F 60 18 148/73 91 08/25/16 01:19 98.9 F 60 16 148/65 90 08/25/16 01:15 95 08/25/16 00:08 98.3 F 08/25/16 00:00 98.3 F 60 18 137/70 95 08/24/16 20:25 98.6 F 08/24/16 20:00 98.6 F 60 20 128/62 95 08/24/16 18:00 60 16 143/57 94 08/24/16 17:00 60 16 148/70 94 08/24/16 16:00 60 14 152/72 93 08/24/16 15:20 60 08/24/16 15:00 60 16 120/64 95 08/24/16 14:00 60 16 134/63 93 08/24/16 13:00 60 16 149/65 98 Intake and Output 08/24/16 08/25/16 08/25/16 23:59 07:59 15:59 Output Total 450 / 450 300 / 300 Balance -450 / -450 -300 / -300 Output: Urine 450 / 450 300 / 300 Other: Weight 88.5 kg Patient Weight 08/25/16 23:59 Weight 88.5 kg - General Appearance General appearance: Present: well-developed, well-nourished, appears started age EENT: Present: ATNC, mucous membranes moist, hearing intact, vision intact Neck: Present: supple Respiratory: Present: clear Cardiology: Present: no edema, regular rate, regular rhythm Gastrointestinal: Present: normoactive bowel sounds, no tenderness, no guarding Integumentary: Present: no rash, warm and dry Neurologic: Present: no focal deficit, alert and oriented x3 Musculoskeletal: Present: no deformities, no erythema, no cyanosis Psychiatric: Present: mood/affect appropriate, cooperative - Lab 08/25/16 04:49 08/25/16 04:49 Most recent lab results Calcium 7.9 mg/dL (8.6-10.8) L 08/25/16 04:49 Phosphorus 4.4 mg/dL (2.3-4.7) 08/24/16 05:30 Magnesium 1.6 mg/dL (1.6-2.6) 08/24/16 05:30 Consult Discharge Plan - Plan Referrals: Zarina Thacker MD [Primary Care Provider] -
--- NOTE | 2016-08-25 12:48 | Cardiothoracic Progress Note ---
Date of Encounter: 08/25/16 Time of Encounter: 12:45 - Assessment and plan (1) Pericardial effusion with cardiac tamponade Current Visit: Yes Status: Resolved The patient is recovering well from his subxiphoid pericardial window for pericardial effusion with tamponade physiology. The patient is ambulating without complaints of substernal chest pain or shortness of breath. He may be discharged home when cleared by the hospitalist. He should see Dr. Beauchamp in the office in 4 weeks. The assessment and plan as outlined above was discussed with the patient and/or family members who expressed understanding and agreement. All questions were answered. - Subjective Procedure(s) Performed: POD#3 S/P Subxiphoid pericardial window Interval history: The patient is sitting in a chair at the bedside. He is eating lunch. He was able to ambulate in the hallways without complaints of substernal chest pain or shortness of breath.. Vital Signs, Last 4 Hours Temp Pulse Resp BP Pulse Ox 08/25/16 11:59 98.3 F 60 16 150/66 92 08/25/16 08:57 91 08/25/16 08:47 98.3 F 60 18 171/54 91 Oxgyen Flow Rate Oxygen Flow Rate (LPM) 3 Clinical Data, last 8 Hours Output, Urine Amount 300 Output, Urine Amount 0 Output, Urine Amount 350 Weight 08/23/16 08/24/16 08/25/16 23:59 23:59 23:59 Weight 93.185 kg 92 kg 88.5 kg - Physical Examination General: Conversant, No Apparent Distress Neck: No JVD, Normal carotid pulses Cardiac: Reg Rate and Rhythm (Rhythm appears to be V-paced.), Normal S1 and S2, No Murmur Incision: No signs of infection, Dry/intact dressing Lungs: Normal Breath Sounds, No Wheeze, Rales, Rhonchi Neuro: Alert and responsive, No focal deficits noted Vascular: Normal capillary refill Musculoskeletal: No Chest Wall Tenderness Extremities: No Clubbing, No Cyanosis, No Edema - Labs 08/25/16 04:49 08/25/16 04:49 Lab Results, Last 24 hours 08/25/16 08/25/16 04:49 04:49 WBC 12.6 H Hgb 10.3 L Hct 31.1 L Plt Count 292 Sodium 143 Potassium 3.0 L Chloride 107 Carbon Dioxide 26 BUN 56 H Creatinine 1.83 H Glucose 105 H Calcium 7.9 L - Imaging Chest Xray: image reviewed (Stable cardiomegaly. Increased pulmonary vascularity consistent with CHF.) Consult Discharge Plan - Plan Referrals: Zarina Thacker MD [Primary Care Provider] -
--- NOTE | 2016-08-25 14:02 | Discharge Summary ---
Date of Encounter: 08/25/16 Time of Encounter: 14:00 - Discharge Diagnosis (1) Pericardial effusion with cardiac tamponade Priority: Primary Status: Resolved (2) Acute kidney injury Priority: Secondary Status: Acute (3) Atrial flutter with rapid ventricular response Priority: Secondary Status: Resolved (4) DVT prophylaxis Priority: Secondary Status: Acute (5) Leukocytosis Priority: Secondary Status: Acute Qualifiers: Leukocytosis type: unspecified Qualified Code(s): D72.829 - Elevated white blood cell count, unspecified - Discharge Medications Prescriptions: Metoprolol [Lopressor] 25 mg PO BID #60 tablet Rivaroxaban [Xarelto] 15 mg PO 1700 #30 tablet Tamsulosin [Flomax] 0.4 mg PO DAILY #30 capsule Home Medications: Aspirin Enteric Coated [Aspirin EC] 81 mg PO DAILY #30 tablet. 08/18/16 [Rx] Metoprolol [Lopressor] 25 mg PO BID #60 tablet 08/25/16 [Rx] Rivaroxaban [Xarelto] 15 mg PO 1700 #30 tablet 08/25/16 [Rx] Tamsulosin [Flomax] 0.4 mg PO DAILY #30 capsule 08/25/16 [Rx] Allergies/Adverse Reactions: Allergies No Known Allergies Allergy (Verified 08/16/16 10:16) Procedures/tests Complete & Pending: Procedures Performed prior 72 hours Category Date Time Status ECG 12 lead ECG [ECG] Routine Y 08/22/16 21:49 Completed Date of admission: 08/21/16 21:42 Primary care physician: Zarina Thacker MD Consults: 08/22/16 02:17 Consult to Nephrology [CONS] Routine Consulting Provider: Kidney Ofelia/TANIA/RADHA/NIKOLAI Reason for Consult: Acute renal failure Call Completed: No 08/22/16 16:17 Consult to Beadworker [CONS] Routine Reason for SW Consult: pericardial window 08/25/16 09:50 Consult to Occupational Therapy [CONS] Routine Comment: Evaluate, develop and implement POC Consult to Physical Therapy [CONS] Routine Comment: Evaluate, develop and implement POC Discharging clinician: Mariela Carbajal Anticipated date of discharge: 08/25/16 - Patient Status Disposition: Home, Self-Care Condition: Good Functional capacity at discharge: independent ambulation Overall status at discharge: patient is back to baseline - Discharge Instructions Follow Up With: Zarina Thacker MD [Primary Care Provider] - Additional Instructions: Please follow up with your primary care physician within five days after your discharge from the hospital. Please follow up with cardiology and nephrology within one week after your discharge from the hospital. Please obtain lab work prior to your follow up appointment with your software writer. Please follow up with cardiothoracic surgery (Dr. Beauchamp) within four weeks after your discharge from the hospital. Metoprolol 25mg twice a day, Xarelto 15mg once a day, Flomax 0.4mg once a day has been added to your home medications. Amlodipine and Losartan have been discontinued. Aspirin 81mg is to be continued. Please take medications as listed above. Please seek medical help immediately if chest pain reoccurs and you have worsening shortness of breath. - Diet and Activity Activity: resume usual activities as tolerated Diet: low salt diet Hospital course: Mr. 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 Patient's hospital course was complicated by acute respiratory failure secondary to pericardial effusion and cardiac tamponade requiring intubation and transfer to the ICU. Patient was followed by cardiology, tow picker, nephrology, and cardiothoracic surgery. Patient underwent pericardial window for the cardiac tamponade. He was followed by cardiology and his home medications were readjusted. Patient was started on Xarelto for anticoagulation for Afib. He was also noted to have urinary retention and was started on Flomax. Patient was extubated shortly after the pericardial window with improvement in his respiratory status. Patient underwent six minute walk test and did not qualify for home oxygen. pt is cleared by cardiology, nephrology, and cardiothoracic surgery for discharge. Patient is hemodynamically stable and stable for discharge. Patient will be discharged with follow up with PCP, cardiology, cardiothoracic surgery, and nephrology. Patient and family demonstrate understanding of his diagnosis and agree with the discharge care and plan. - Time Spent with Patient Total time spent providing and/or coordinating discharge services: Greater than 30 minutes - Constitutional Vitals: Temp Pulse Resp BP Pulse Ox 98.3 F 60 16 150/66 92 08/25/16 11:59 08/25/16 11:59 08/25/16 11:59 08/25/16 11:59 08/25/16 11:59 General appearance: Present: A&O X 3, no acute distress, answers questions appropriately - Head Head exam: Present: atraumatic, normocephalic - Respiratory Respiratory exam: Present: CTAB. Absent: accessory muscle use, rales, rhonchi, wheezes - Cardiovascular Cardiovascular exam: Present: RRR, +S1, +S2. Absent: diastolic murmur, gallop, rubs, systolic murmur - GI/Abdominal GI/Abdominal exam: Present: normal bowel sounds, soft, no peritoneal signs. Absent: distended, tenderness - Extremities Exam Extremities exam: Present: pedal edema, warm, radial pulses palpable and symetrical. Absent: calf tenderness - Neurological Exam Neurological exam: Present: alert, oriented X3 - Psychiatric Psychiatric exam: Present: normal affect, normal mood
== END 2016-08-25 14:48 | disposition home or self-care (01) | DRG 270 ==
LOC: EMEROO 14:07 → 2ANU 14:07 → 2NNU 19:39 → SUATTDRO 21:42 → ICNU 23:12 → 2ANU 08-25 00:57
PROVIDERS: ADMIT Nurse Practitioner Acute Care; ATTEND Internal Medicine